=== PATIENT | male | born 1970 | race Caucasian/White ===

== ENCOUNTER 2016-12-17 09:33 | Emergency (ER) | payer MEDICAID ==
[~2016-12-17] VITALS: Ht 175.3 cm; Wt 65.0 kg
[2016-12-17 09:35] VITALS: BP 120/72; PULSE 70; RESP 15; TEMP 97.9; O2SAT 97
[2016-12-17 09:59] VITALS: BP 126/74; PULSE 69; RESP 18; O2SAT 97
[2016-12-17] MEDS ORDERED: oxyCODONE/ACETAMINOPHEN 5 MG/325 MG TAB PO ONE (10:00)
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
[2016-12-17] MEDS ORDERED: HYDR-3533 PO ×2 (11:25→11:26)
[2016-12-17 12:36] VITALS: BP 136/88; TEMP 98.4
[2017-04-25] MEDS ORDERED: SERO300T PO (14:59)
[2017-04-25] MEDS ORDERED: SERO25TA PO (14:59)
== END 2016-12-17 12:25 | disposition home or self-care (01) ==
LOC: NEPE 09:33
DX: S22.31XA Fracture of one rib, right side, initial encounter for closed fracture (principal); S02.40EA Zygomatic fracture, right side, initial encounter for closed fracture; S02.2XXA Fracture of nasal bones, initial encounter for closed fracture; Y09 Assault by unspecified means
CPT/HCPCS: 70450; 70486; 71101; 94150

== ENCOUNTER 2016-12-19 00:31 | Inpatient (IN) | payer OTHER ==
[~2016-12-19] VITALS: Ht 175.3 cm; Wt 68.0 kg
[~2016-12-19 00:31] MED LIST: HYDR-3533 PO
[2016-12-19 00:40] VITALS: BP 136/79; PULSE 76; RESP 17; TEMP 97.8; O2SAT 99
[2016-12-19] MEDS ORDERED: HALO2TAB PO (00:58)
[2016-12-19] MEDS ORDERED: PAXI20TA PO ×2 (00:58)
[2016-12-19] MEDS ORDERED: SERO25TA PO (00:58)
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
[2016-12-19 01:20] LABS: AUTOMATED NEUTROPHIL # 6.2 TH/MM3 (1.8-7.7); BASOPHIL # 0.1 TH/MM3 (0-0.2); BASOPHIL % 0.8 % (0.0-2.0); EOSINOPHIL # 0.5 TH/MM3 (0-0.4); EOSINOPHIL % 5.1 % (0.0-4.0); HEMATOCRIT 45.2 % (39.0-51.0); HEMO FLAGS DIFF FINAL; LYMPH % 27.6 % (9.0-44.0); LYMPHOCYTE # 2.9 TH/MM3 (1.0-4.8); MEAN CELL VOLUME 95.3 FL (80.0-100.0); MEAN CORPUSCULAR HGB CONC 34.6 % (32.0-36.0); MONO % 8.3 % (0.0-8.0); NEUT % 58.2 % (16.0-70.0); PLATELET COUNT 198 TH/MM3 (150-450); RED BLOOD COUNT 4.74 MIL/MM3 (4.50-5.90); RED CELL DISTRIBUTION WIDTH 13.6 % (11.6-17.2); WHITE BLOOD COUNT 10.7 TH/MM3 (4.0-11.0)
[2016-12-19 01:38] LABS: ALT (GPT) 140 U/L (12-78); ANION GAP 10 MEQ/L (5-15); AST (GOT) 84 U/L (15-37); BLOOD UREA NITROGEN 13 MG/DL (7-18); CHLORIDE 104 MEQ/L (98-107); GLOMERULAR FILTRATION RATE 67 ML/MIN (>89); POTASSIUM 3.8 MEQ/L (3.5-5.1); SODIUM (NA) 141 MEQ/L (136-145)
[2016-12-19 01:41] LABS: ACETAMINOPHEN LESS THAN 2.0 MCG/ML (10.0-30.0); ALKALINE PHOSPHATASE 80 U/L (45-117); TOTAL BILIRUBIN ADULT 1.1 MG/DL (0.2-1.0)
[2016-12-19 03:58] VITALS: BP 121/71; PULSE 76; RESP 16; O2SAT 93
[2016-12-19] MEDS ORDERED: ACETAMINOPHEN/HYDROcodone 325 MG/5 MG TAB PO ONE (06:00)
[2016-12-19] MEDS ORDERED: NAPROXEN 500 MG TAB PO ONE (06:00)
[2016-12-19 06:36] VITALS: BP 125/58; PULSE 73; RESP 19; O2SAT 99
[2016-12-19] MEDS ORDERED: BENZTROPINE MESYLATE 1 MG TAB PO PRN (08:45)
[2016-12-19] MEDS ORDERED: hydrOXYzine HCL 50 MG TAB PO PRN (08:45)
[2016-12-19] MEDS ORDERED: BENZTROPINE MESYLATE 2 MG/2 ML VIAL IM PRN (08:45)
[2016-12-19] MEDS ORDERED: LORazepam 2 MG/ML VIAL IM PRN ×4 (08:45)
[2016-12-19] MEDS ORDERED: diphenhydrAMINE HCL 50 MG CAP PO PRN (08:45)
[2016-12-19] MEDS ORDERED: ALUMINUM/MAGNESIUM/SIMETH 30 ML CUP PO PRN (08:45)
[2016-12-19] MEDS ORDERED: MAGNESIUM HYDROXIDE SUSP 30 ML CUP PO PRN (08:45)
[2016-12-19] MEDS ORDERED: LORazepam 2 MG TAB PO PRN (08:45)
[2016-12-19] MEDS ORDERED: LORazepam 1 MG TAB PO PRN (08:45)
[2016-12-19] MEDS ORDERED: FLUMAZENIL 0.5 MG/5 ML VIAL IV PUSH PRN (08:45)
[2016-12-19] MEDS ORDERED: PARoxetine HCL 20 MG TAB PO SCH (09:00)
[2016-12-19] MEDS ORDERED: PILL SPLITTER OTHER PRN (09:45)
[2016-12-19 09:52] VITALS: BP 119/71; PULSE 67; RESP 16; O2SAT 97
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
[2016-12-19 11:14] VITALS: BP 119/71; PULSE 67; RESP 16; O2SAT 97
[2016-12-19 12:12] VITALS: BP 116/68; PULSE 64; RESP 18; TEMP 98.5; O2SAT 94
[2016-12-19] MEDS: FOLIC ACID 1 MG TAB PO SCH (13:34)
[2016-12-19] MEDS: HALOPERIDOL 2 MG TAB PO SCH ×2 (13:34→20:48)
[2016-12-19] MEDS: THIAMINE HCL 100 MG TAB PO SCH (13:34)
[2016-12-19] MEDS: NICOTINE 21 MG/24 HR PATCH T-DERMAL SCH (13:34)
[2016-12-19] MEDS: ACETAMINOPHEN 325 MG TAB PO PRN ×2 (17:25→20:49)
[2016-12-19 17:44] LABS: PROTHROMBIN TIME - PATIENT 11.5 SEC (9.8-11.6)
[2016-12-19] MEDS ORDERED: QUEtiapine FUMARATE 25 MG TAB PO SCH (21:00)
[2016-12-20 06:06] VITALS: BP 108/68; PULSE 64; RESP 18; TEMP 98.5; O2SAT 96
[2016-12-20 07:44] LABS: ALKALINE PHOSPHATASE 71 U/L (45-117); ALT (GPT) 113 U/L (12-78); ANION GAP 7 MEQ/L (5-15); AST (GOT) 78 U/L (15-37); BICARBONATE 31.4 MEQ/L (21.0-32.0); BLOOD UREA NITROGEN 12 MG/DL (7-18); CHLORIDE 102 MEQ/L (98-107); GLOMERULAR FILTRATION RATE 62 ML/MIN (>89); LDL CHOLESTEROL 92 MG/DL (0-99); SODIUM (NA) 140 MEQ/L (136-145); TOTAL BILIRUBIN ADULT 1.2 MG/DL (0.2-1.0)
[2016-12-20] MEDS: THIAMINE HCL 100 MG TAB PO SCH (08:29)
[2016-12-20] MEDS: FOLIC ACID 1 MG TAB PO SCH (08:29)
[2016-12-20] MEDS: HALOPERIDOL 2 MG TAB PO SCH (08:30)
[2016-12-20] MEDS ORDERED: PARoxetine HCL 20 MG TAB PO SCH (09:00)
[2016-12-20] MEDS: NICOTINE 21 MG/24 HR PATCH T-DERMAL SCH (09:00)
[2016-12-20] MEDS ORDERED: REMOVE OLD PATCH T-DERMAL SCH (09:00)
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
--- NOTE | 2016-12-20 10:02 | RADRPT ---
EXAM DATE/TIME: 12/20/2016 07:48 [facility] COMPARISON: No previous studies available for comparison. INDICATIONS : Increased lab values. MEDICAL HISTORY : Arthritis. Schizophrenia. Bipolar disorder. Previous suicide attempt. SURGICAL HISTORY : None. ENCOUNTER: Initial ACUITY: 2 days PAIN SCORE: 0/10 LOCATION: Bilateral upper quadrant MEASUREMENTS: LIVER: 14.6 cm length COMMON DUCT: 4 mm RIGHT KIDNEY: 10.1 x 5.3 x 4.9 cm SPLEEN: 9.3 cm length FINDINGS: LIVER: Normal echotexture without focal lesion or ductal dilatation. COMMON DUCT: No intraluminal mass or stone visualized. GALLBLADDER: Contains no stones, demonstrates no wall thickening or pericholecystic fluid. PANCREAS: Not well visualized or evaluated. RIGHT KIDNEY: No hydronephrosis, stone or mass. SPLEEN: No focal lesion. CONCLUSION: Unremarkable exam. Alejandro Hartmann MD on December 20, 2016 at 10:00 Board Certified Radiologist. This report was verified electronically.
[2016-12-20 10:36] LABS: HEMOGLOBIN A1a 1.3 %; HEMOGLOBIN A1b 1.5 %; HEMOGLOBIN Ao 85.1 %; HEMOGLOBIN LA1C 2.2 %; HEMOGLOBIN P3 3.6 %
[2016-12-20] MEDS ORDERED: PARO20TA2 PO (13:42)
[2016-12-20] MEDS ORDERED: VITA100T2 PO (13:42)
[2016-12-20] MEDS ORDERED: HALO2TAB PO (13:42)
[2016-12-20] MEDS ORDERED: SERO25TA PO (13:42)
[2016-12-20] MEDS ORDERED: FOLI1TAB4 PO (13:42)
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
[2016-12-20] MEDS ORDERED: RESP: ALBUTEROL 2.5 MG/IPRATROPIUM 0.5 MG NEB (SCH) NEB (14:00)
[2016-12-20] MEDS ORDERED: BUDESONIDE-FORMOTEROL 160/4.5 MCG INHALER INH SCH (21:00)
[2017-04-25] MEDS ORDERED: SERO300T PO (14:59)
[2017-04-25] MEDS ORDERED: SERO25TA PO (14:59)
== END 2016-12-20 14:45 | disposition home or self-care (01) | DRG 881 ==
LOC: NEPA 00:31 → NEDA 08:11 → H260 11:37
PROVIDERS: ADMIT Psychiatry & Neurology Psychiatry; ATTEND Psychiatry & Neurology Psychiatry
DX: F43.21 Adjustment disorder with depressed mood (principal); J44.9 Chronic obstructive pulmonary disease, unspecified; F10.10 Alcohol abuse, uncomplicated; Z76.5 Malingerer [conscious simulation]; Z59.0 Homelessness; Z91.5 Personal history of self-harm; F17.210 Nicotine dependence, cigarettes, uncomplicated; F12.90 Cannabis use, unspecified, uncomplicated; Z87.820 Personal history of traumatic brain injury; S22.31XD Fracture of one rib, right side, subsequent encounter for fracture with routine healing; Y09 Assault by unspecified means; R68.84 Jaw pain
CPT/HCPCS: 70450; 70486; 71101; 76705; 80053; 80061; 80074; 80320; 80329; 83036; 84443; 85025; 85610; 94150; 99285; G0480; Q0163

== ENCOUNTER 2016-12-21 00:42 | Emergency (ER) | payer OTHER ==
[~2016-12-21] VITALS: Ht 175.3 cm; Wt 68.0 kg
[~2016-12-21 00:42] MED LIST changes: +FOLI1TAB4 PO; +HALO2TAB PO; -HYDR-3533 PO; +PARO20TA2 PO; +SERO25TA PO; +VITA100T2 PO
[2016-12-21 00:44] VITALS: BP 140/82; PULSE 84; RESP 16; TEMP 97.7; O2SAT 97
--- NOTE | 2016-12-21 03:17 | PD ---
HPI Chief Complaint: Psychiatric Symptoms Time Seen by Provider: 03:17 Travel History International Travel<30 days: No Contact w/Intl Traveler<30days: No History of Present Illness HPI 46-year-old male presents to the emergency department voluntarily for psychiatric evaluation. Patient has history of substance abuse. Patient is also homeless and states he has been depressed. Patient was evaluated recently in the ER and by psych here at [facility]. He was discharged yesterday. Patient states upon discharge he returned and found that his dog had . This caused him to be even more depressed and feeling suicidal again. He states that he needs to be reevaluated. PFSH Past Medical History Arthritis: Yes Bipolar Disorder: Yes Anxiety: Yes Depression: Yes Cancer: No Cardiovascular Problems: No Diminished Hearing: No Endocrine: No Genitourinary: No Immune Disorder: No Musculoskeletal: Yes Neurologic: No Reproductive: No Respiratory: No Schizophrenia: Yes Social History Alcohol Use: Yes (daily) Tobacco Use: Yes (0.5 ppd) Substance Use: Yes Allergies-Medications (Allergen,Severity, Reaction): Coded Allergies: No Known Allergies (Unverified , 12/21/16) Reported Meds & Prescriptions Reported Meds & Active Scripts Active Vitamin B-1 (Thiamine HCl) 100 Mg Tab 100 Mg PO DAILY 15 Days Paroxetine (Paroxetine HCl) 20 Mg Tab 30 Mg PO DAILY 15 Days Folate (Folic Acid) 1 Mg Tab 1 Mg PO DAILY 30 Days Seroquel (Quetiapine Fumarate) 25 Mg Tab 25 Mg PO HS 15 Days Haloperidol 2 Mg Tab 2 Mg PO BID 15 Days Review of Systems Except as stated in HPI: all other systems reviewed are Neg Physical Exam Narrative GENERAL: Unkempt male patient, ambulatory and in no acute distress. SKIN: Warm and dry. HEAD: Normocephalic. Atraumatic EYES: No scleral icterus. No injection or drainage. NECK: Supple, trachea midline. No JVD or lymphadenopathy. CARDIOVASCULAR: Regular rate and rhythm without murmurs, gallops, or rubs. RESPIRATORY: Breath sounds equal bilaterally. No accessory muscle use. GASTROINTESTINAL: Abdomen soft, non-tender, nondistended. MUSCULOSKELETAL: No cyanosis, or edema. BACK: Nontender without obvious deformity. No CVA tenderness. Data Data Last Documented VS Vital Signs Date Time Temp Pulse Resp B/P Pulse Ox O2 Delivery O2 Flow Rate FiO2 12/21/16 00:44 97.7 84 16 140/82 97 Orders Psych Screen (12/21/16 04:22) Diet Regular Basic (12/21/16 Breakfast) MDM Medical Decision Making Medical Screen Exam Complete: Yes Emergency Medical Condition: Yes Medical Record Reviewed: Yes Differential Diagnosis Mood disorder versus personality disorder versus adjustment reaction disorder versus malingering Narrative Course 46-year-old male presents to emergency department for evaluation. Patient was just discharged yesterday with lab work done 2 days ago. It will not need to be repeated. He is medically cleared to undergo psychiatric screening for further evaluation and disposition. Mental health screening discussed with the patient. Psychiatric screen ordered. Diagnosis Primary Impression: Adjustment disorder with depressed mood Condition: Stable Nayla Johnson Dec 21, 2016 03:17
[2016-12-21 06:13] VITALS: BP 109/55; PULSE 72; RESP 18; O2SAT 99
[2016-12-21 10:53] VITALS: BP 98/50; PULSE 63; RESP 16; O2SAT 98
[2016-12-21 13:39] VITALS: BP 105/54; PULSE 68; RESP 16; O2SAT 96
[2017-04-25] MEDS ORDERED: SERO300T PO (14:59)
[2017-04-25] MEDS ORDERED: SERO25TA PO (14:59)
== END 2016-12-21 14:22 | disposition home or self-care (01) ==
LOC: NEPJ 00:42
DX: F43.21 Adjustment disorder with depressed mood (principal); F31.9 Bipolar disorder, unspecified; F41.8 Other specified anxiety disorders; F20.9 Schizophrenia, unspecified; F17.210 Nicotine dependence, cigarettes, uncomplicated; Z59.0 Homelessness
CPT/HCPCS: 99284

== ENCOUNTER 2017-01-07 14:21 | Emergency (ER) | payer MEDICAID, OTHER ==
[~2017-01-07] VITALS: Ht 175.3 cm; Wt 60.0 kg
[2017-01-07 14:24] VITALS: BP 129/71; PULSE 106; RESP 24; TEMP 98.8; O2SAT 93
--- NOTE | 2017-01-07 14:54 | PD ---
HPI Chief Complaint: Psychiatric Symptoms Time Seen by Provider: 14:53 Travel History International Travel<30 days: No Contact w/Intl Traveler<30days: No Traveled to known affect area: No History of Present Illness HPI 46-year-old male with history of schizophrenia, homelessness presents to the ED for voluntary evaluation of suicidal ideation. The patient states that his dog of 10+ years is missing, possibly . He states that he wants to hang himself and join her. He states that he spent all night wandering around calling her name. He states that he was provided medications at his last discharge but he has not taken any of them since. He states that they were stolen. He denies physical complaints on presentation. Patient is a current smoker, endorses drinking "a few beers" today. Denies illicit drug use. PFSH Past Medical History Arthritis: Yes Bipolar Disorder: Yes Anxiety: Yes Depression: Yes Cancer: No Cardiovascular Problems: No Diminished Hearing: No Endocrine: No Genitourinary: No Immune Disorder: No Musculoskeletal: Yes Neurologic: No Reproductive: No Respiratory: No Schizophrenia: Yes Past Surgical History Other Surgery: Yes Social History Alcohol Use: Yes (daily) Tobacco Use: Yes (0.5 ppd) Substance Use: Yes Allergies-Medications (Allergen,Severity, Reaction): Coded Allergies: No Known Allergies (Unverified , 01/07/17) Reported Meds & Prescriptions Reported Meds & Active Scripts Active Vitamin B-1 (Thiamine HCl) 100 Mg Tab 100 Mg PO DAILY 15 Days Paroxetine (Paroxetine HCl) 20 Mg Tab 30 Mg PO DAILY 15 Days Folate (Folic Acid) 1 Mg Tab 1 Mg PO DAILY 30 Days Seroquel (Quetiapine Fumarate) 25 Mg Tab 25 Mg PO HS 15 Days Haloperidol 2 Mg Tab 2 Mg PO BID 15 Days Review of Systems Except as stated in HPI: all other systems reviewed are Neg Physical Exam Narrative GENERAL: Well-nourished, well-developed disheveled, tearful white male in no acute distress. SKIN: Warm and dry. Multiple tattoos. There is a small scab on the dorsal aspect of the right foot. No signs of infection. HEAD: Normocephalic. EYES: No scleral icterus. No injection or drainage. NECK: Supple, trachea midline. No JVD or lymphadenopathy. CARDIOVASCULAR: Regular rate and rhythm without murmurs, gallops, or rubs. 2+ DP and radial pulses bilaterally. RESPIRATORY: Breath sounds clear and equal bilaterally. No accessory muscle use. GASTROINTESTINAL: Abdomen soft, non-tender, nondistended. Active bowel sounds. MUSCULOSKELETAL: No cyanosis, or edema. Patient is observed to walk with a normal gait. He rises easily from sitting to standing positions. BACK: Nontender without obvious deformity. No CVA tenderness. Data Data Last Documented VS Vital Signs Date Time Temp Pulse Resp B/P Pulse Ox O2 Delivery O2 Flow Rate FiO2 01/07/17 15:00 86 16 01/07/17 14:24 98.8 129/71 93 Room Air Orders Complete Blood Count With Diff (01/07/17 14:54) Comprehensive Metabolic Panel (01/07/17 14:54) Psych Screen (01/07/17 14:54) Drug Screen, Random Urine (01/07/17 14:54) Alcohol (Ethanol) (01/07/17 14:54) Alcohol Withdrawal Asmt-Ciwa ONCE (01/07/17 16:28) Flumazenil Inj (Romazicon Inj) (01/07/17 16:30) Lorazepam (Ativan) (01/07/17 16:30) Lorazepam Inj (Ativan Inj) (01/07/17 16:30) Lorazepam (Ativan) (01/07/17 16:30) Lorazepam Inj (Ativan Inj) (01/07/17 16:30) Lorazepam Inj (Ativan Inj) (01/07/17 16:30) Lorazepam Inj (Ativan Inj) (01/07/17 16:30) Labs Laboratory Tests Test 01/07/17 15:00 White Blood Count 12.6 TH/MM3 Red Blood Count 4.88 MIL/MM3 Hemoglobin 16.2 GM/DL Hematocrit 48.4 % Mean Corpuscular Volume 99.1 FL Mean Corpuscular Hemoglobin 33.3 PG Mean Corpuscular Hemoglobin 33.6 % Concent Red Cell Distribution Width 15.0 % Platelet Count 292 TH/MM3 Mean Platelet Volume 8.6 FL Neutrophils (%) (Auto) 58.6 % Lymphocytes (%) (Auto) 26.1 % Monocytes (%) (Auto) 12.1 % Eosinophils (%) (Auto) 2.8 % Basophils (%) (Auto) 0.4 % Neutrophils # (Auto) 7.4 TH/MM3 Lymphocytes # (Auto) 3.3 TH/MM3 Monocytes # (Auto) 1.5 TH/MM3 Eosinophils # (Auto) 0.4 TH/MM3 Basophils # (Auto) 0.0 TH/MM3 CBC Comment DIFF FINAL Differential Comment Sodium Level 138 MEQ/L Potassium Level 5.4 MEQ/L Chloride Level 106 MEQ/L Carbon Dioxide Level 22.4 MEQ/L Anion Gap 10 MEQ/L Blood Urea Nitrogen 9 MG/DL Creatinine 1.19 MG/DL Estimat Glomerular Filtration 66 ML/MIN Rate Random Glucose 111 MG/DL Calcium Level 8.8 MG/DL Total Bilirubin 0.5 MG/DL Aspartate Amino Transf 89 U/L (AST/SGOT) Alanine Aminotransferase 78 U/L (ALT/SGPT) Alkaline Phosphatase 119 U/L Total Protein 8.2 GM/DL Albumin 3.2 GM/DL Ethyl Alcohol Level 204 MG/DL MDM Medical Decision Making Medical Screen Exam Complete: Yes Emergency Medical Condition: Yes Differential Diagnosis Adjustment disorder versus anxiety versus bipolar versus depression versus dementia versus electrolyte disorder versus malingering versus mood disorder versus ODD versus psychosis versus PTSD versus schizophrenia versus schizoaffective disorder versus substance-induced mood disorder versus other Narrative Course 46-year-old male with history of schizophrenia, homelessness presents to the ED for voluntary evaluation of suicidal ideation. The patient states that his dog of 10+ years is missing, possibly . He states that he wants to hang himself and join her. Noncompliant with psychiatric medications prescribed at previous discharge. No physical complaints. Vitals reviewed. Physical exam reveals a disheveled, tearful white male in no acute distress. Chest is CTA B, abdomen soft, nontender. Remaining physical exam unremarkable. CBC shows mild elevation of the white count, likely stress reaction. CMP with mildly elevated potassium. EtOH 204. Patient placed on CIWA protocol. He is medically clear for psychiatric evaluation. Diagnosis Primary Impression: Medical clearance for psychiatric admission Aranza Abdalla Jan 07, 2017 14:54
[2017-01-07 15:16] LABS: AUTOMATED NEUTROPHIL # 7.4 TH/MM3 (1.8-7.7); BASOPHIL % 0.4 % (0.0-2.0); EOSINOPHIL # 0.4 TH/MM3 (0-0.4); EOSINOPHIL % 2.8 % (0.0-4.0); HEMATOCRIT 48.4 % (39.0-51.0); HEMO FLAGS DIFF FINAL; LYMPH % 26.1 % (9.0-44.0); LYMPHOCYTE # 3.3 TH/MM3 (1.0-4.8); MEAN CELL VOLUME 99.1 FL (80.0-100.0); MEAN CORPUSCULAR HEMOGLOBIN 33.3 PG (27.0-34.0); MEAN CORPUSCULAR HGB CONC 33.6 % (32.0-36.0); MONO % 12.1 % (0.0-8.0); NEUT % 58.6 % (16.0-70.0); PLATELET COUNT 292 TH/MM3 (150-450); RED BLOOD COUNT 4.88 MIL/MM3 (4.50-5.90); WHITE BLOOD COUNT 12.6 TH/MM3 (4.0-11.0)
[2017-01-07 15:36] LABS: ALT (GPT) 78 U/L (12-78); ANION GAP 10 MEQ/L (5-15); AST (GOT) 89 U/L (15-37); BICARBONATE 22.4 MEQ/L (21.0-32.0); BLOOD UREA NITROGEN 9 MG/DL (7-18); CHLORIDE 106 MEQ/L (98-107); GLOMERULAR FILTRATION RATE 66 ML/MIN (>89); SODIUM (NA) 138 MEQ/L (136-145)
[2017-01-07 15:38] LABS: ALKALINE PHOSPHATASE 119 U/L (45-117); POTASSIUM 5.4 MEQ/L (3.5-5.1); TOTAL BILIRUBIN ADULT 0.5 MG/DL (0.2-1.0)
[2017-01-07] MEDS ORDERED: FLUMAZENIL 0.5 MG/5 ML VIAL IV PUSH PRN (16:30)
[2017-01-07] MEDS ORDERED: LORazepam 1 MG TAB PO PRN (16:30)
[2017-01-07] MEDS ORDERED: LORazepam 2 MG TAB PO PRN (16:30)
[2017-01-07] MEDS ORDERED: LORazepam 2 MG/ML VIAL IV PUSH PRN ×4 (16:30)
[2017-01-07 18:45] VITALS: BP 105/63; PULSE 84; RESP 18; TEMP 98.3; O2SAT 95
[2017-01-07] MEDS ORDERED: HYDR-3516 PO (19:32)
[2017-01-07 22:24] VITALS: BP 98/69; PULSE 72; RESP 18
[2017-01-08 02:06] VITALS: BP 119/67; PULSE 63; RESP 18; O2SAT 96
[2017-01-08 06:38] VITALS: BP 131/71; PULSE 59; RESP 18; O2SAT 98
[2017-01-08 10:36] VITALS: BP 125/72; PULSE 59; RESP 16; TEMP 98.5; O2SAT 97
[2017-01-08 10:45] VITALS: BP 125/72
[2017-01-08 12:18] LABS: BLOOD, URINE NEG (NEG); COMMENT (UR) CULT NOT INDICATED; CULTURE IF INDICATED CULT NOT INDICATED; GLUCOSE,URINE NEG (NEG); KETONE, URINE NEG (NEG); NITRITE,URINE NEG (NEG); URINE COLOR YELLOW (YELLW/STRAW)
[2017-01-08 12:24] LABS: AMPHETAMINE, URINE NEG (NEG); BARBITURATES, URINE NEG (NEG); COCAINE, URINE POS (NEG)
[2017-01-08 13:00] VITALS: BP 146/65; PULSE 54; RESP 18
[2017-04-25] MEDS ORDERED: SERO25TA PO (14:59)
[2017-04-25] MEDS ORDERED: SERO300T PO (14:59)
== END 2017-01-08 14:20 ==
LOC: NEPC 14:21 → NEPJ 01-08 14:20
DX: R45.851 Suicidal ideations (principal); F20.9 Schizophrenia, unspecified; F17.210 Nicotine dependence, cigarettes, uncomplicated; Z59.0 Homelessness
CPT/HCPCS: 80053; 80307; 80320; 81001; 85025; 99285

== ENCOUNTER 2017-04-20 16:43 | Emergency (ER) | payer MEDICAID, OTHER ==
[~2017-04-20] VITALS: Ht 172.7 cm; Wt 70.0 kg
[~2017-04-20 16:43] MED LIST changes: -HALO2TAB PO; +HYDR-3516 PO; -PARO20TA2 PO; -SERO25TA PO; -VITA100T2 PO
[2017-04-20 16:45] VITALS: BP 144/74; PULSE 90; RESP 20; TEMP 98.1; O2SAT 96
--- NOTE | 2017-04-20 17:06 | PD ---
HPI Chief Complaint: Eye Problems/Injury Time Seen by Provider: 16:58 Travel History International Travel<30 days: No Contact w/Intl Traveler<30days: No Traveled to known affect area: No History of Present Illness HPI This patient presents with 2 separate complaints. The first issue is that for the past 5 days he has been having left eye drainage, matting, tearing and irritation. He believes that it is secondary to rubbing his eye when he had some toothpaste on his finger. Symptoms are mild, aggravated by keeping his eye open. He does not wear contacts. In addition the patient is complaining of right wrist pain. He reports that earlier today he was pulling his dog leash when he was pulled to the ground, fell on his right wrist. He now has medial right wrist pain which is aching, constant, worse with movement of the right wrist. Denies any other injuries, denies numbness or tingling or weakness. He has no other complaints. PFSH Past Medical History Arthritis: Yes Bipolar Disorder: Yes Anxiety: Yes Depression: Yes Cancer: No Cardiovascular Problems: No Cerebrovascular Accident: Yes (TIA, X2 HEAD BLEEDS) Diminished Hearing: No Endocrine: No Genitourinary: No Immune Disorder: No Musculoskeletal: Yes Neurologic: No Reproductive: No Respiratory: No Schizophrenia: Yes Past Surgical History Other Surgery: Yes Social History Alcohol Use: Yes (daily) Tobacco Use: Yes (0.5 ppd) Substance Use: Yes Allergies-Medications (Allergen,Severity, Reaction): Coded Allergies: No Known Allergies (Unverified , 04/20/17) Reported Meds & Prescriptions Reported Meds & Active Scripts Active Tobrex Opth Oint (Tobramycin Sulfate) 0.3 % Oint 1 Applic LEFT EYE QID 10 Days Folate (Folic Acid) 1 Mg Tab 1 Mg PO DAILY 30 Days Reported Hydrocodone-Acetaminophen 5-325 mg Tab 1 Tab PO Q4H PRN Review of Systems Except as stated in HPI: all other systems reviewed are Neg Physical Exam Narrative GENERAL: Well-developed well-nourished male in no acute distress SKIN: Warm and dry. HEAD: Atraumatic. Normocephalic. EYES: Pupils equal and round reactive to light extraocular muscles are intact. There is left eye conjunctival injection. Wood's lamp reveals 2 linear abrasions overlying the left eye pupil. No dendritic lesions. Negative Jessica' s. The upper eyelid was everted and there is no evidence of retained foreign body. ENT: No nasal bleeding or discharge. Mucous membranes pink and moist. NECK: Trachea midline. No JVD. CARDIOVASCULAR: Regular rate and rhythm. No murmur appreciated. RESPIRATORY: No accessory muscle use. Clear to auscultation. Breath sounds equal bilaterally. MUSCULOSKELETAL: No obvious deformities. Some tenderness to palpation to the medial right wrist. The patient maintains normal patient representative strength, full flexion, extension, internal and external rotation of the right wrist/forearm. 2+ radial pulse. Capillary refill less than 2 seconds all digits right hand. NEUROLOGICAL: Awake and alert. No obvious cranial nerve deficits. Motor grossly within normal limits. Normal speech. Data Data Last Documented VS Vital Signs Date Time Temp Pulse Resp B/P Pulse Ox O2 Delivery O2 Flow Rate FiO2 04/20/17 16:45 98.1 90 20 144/74 96 Room Air Orders Proparacaine 0.5% Opth Soln (Alcaine 0.5 (04/20/17 17:15) Wrist, Complete ([id number]) (04/20/17 ) Tobramycin 0.3% Opth Oint (Tobrex 0.3% O (04/20/17 17:30) Ibuprofen (Motrin) (04/20/17 17:45) MDM Medical Decision Making Medical Screen Exam Complete: Yes Emergency Medical Condition: Yes Medical Record Reviewed: Yes Differential Diagnosis Conjunctivitis, corneal abrasion, foreign body, iritis, keratitis, herpetic keratitis Right wrist contusion, strain, sprain, fracture Narrative Course 46-year-old male with left eye redness, irritation, matting and yellow drainage for 5 days. Examination reveals left eye conjunctival injection as well as 2 large linear corneal abrasions overlying the pupil. No dendritic lesions to suggest herpetic infection. Given that the symptoms started 5 days ago and the fact that they overlying the pupil, the plan will be to have him follow-up as an outpatient with ophthalmology for recheck to assure no complications and the healing process. He will be given Tobrex ophthalmic ointment, first dose given here. In addition he has right wrist pain after falling and hitting his right wrist against the ground. Wrist x-rays negative. The patient is requesting a Velcro wrist splint which would be a reasonable intervention at this point. He is stable for discharge. Diagnosis Primary Impression: Injury of conjunctiva and corneal abrasion of left eye w/o FB Qualified Code: S05.02XA - Injury of conjunctiva and corneal abrasion of left eye w/o FB, initial encounter Additional Impression: Wrist contusion Qualified Code: S60.211A - Contusion of right wrist, initial encounter Referrals: Rebecca Rao MD Additional Instructions: Follow-up with Dr. Rao or another manager of application development in the next 1-2 days. Use the medication as prescribed. Take [id number] Tylenol or Motrin for symptom relief. Return for any emergent medical conditions. Med/Other Pt SpecificInfo: Prescription(s) given, Orthopedic Instructions Scripts Tobramycin Opth Oint (Tobrex Opth Oint)0.3 % Oint1 Applic LEFT EYE QID 10 Days Ref 0 Prov:Rafael Fuentes MD 04/20/17 Disposition: 01 DISCHARGE HOME Condition: Stable Fidel Cantu Apr 20, 2017 17:06
[2017-04-20] MEDS ORDERED: PROPARACAINE HCL 0.5% OPHT SOLN 15 ML BTL LEFT EYE ONE (17:15)
[2017-04-20] MEDS ORDERED: TOBR.3%O LEFT EYE (17:17)
[2017-04-20] MEDS ORDERED: TOBRAMYCIN SULFATE 0.3% OPTH OINT 3.5 GM TUBE LEFT EYE ONE (17:30)
[2017-04-20] MEDS ORDERED: IBUPROFEN 400 MG TAB PO ONE (17:45)
--- NOTE | 2017-04-20 17:54 | RADRPT ---
EXAM DATE/TIME: 04/20/2017 17:34 [facility] COMPARISON: No previous studies available for comparison. INDICATIONS : Right wrist pain after fall. MEDICAL HISTORY : Previous fracture in 2013 of right wrist. SURGICAL HISTORY : None. ENCOUNTER: Initial ACUITY: 1 day PAIN SCORE: 7/10 LOCATION: Right lateral wrist. FINDINGS: 3 views of the right wrist reveal old fracture involving the distal radial metaphysis. No residual fr acture line observed. No acute fracture seen. Degenerative changes of the radiocarpal joint. Soft tis sues are unremarkable. CONCLUSION: Old distal radial fracture. No acute abnormality. Oren Sibley Jr., MD on April 20, 2017 at 17:51 Board Certified Radiologist. This report was verified electronically.
[2017-04-25] MEDS ORDERED: SERO25TA PO (14:59)
[2017-04-25] MEDS ORDERED: SERO300T PO (14:59)
== END 2017-04-20 18:07 | disposition home or self-care (01) ==
LOC: NEPK 16:43
DX: S05.02XA Injury of conjunctiva and corneal abrasion without foreign body, left eye, initial encounter (principal); S60.211A Contusion of right wrist, initial encounter; F17.200 Nicotine dependence, unspecified, uncomplicated; Z87.39 Personal history of other diseases of the musculoskeletal system and connective tissue; Z86.59 Personal history of other mental and behavioral disorders; Z86.79 Personal history of other diseases of the circulatory system; W18.39XA Other fall on same level, initial encounter; Y93.K1 Activity, walking an animal
CPT/HCPCS: 73110; 99283; L3908

== ENCOUNTER 2017-10-09 05:03 | Inpatient (IN) | payer OTHER ==
[2017-10-09] VITALS (9 sets, daily range): BP systolic 124–139; BP diastolic 73–94; PULSE 74–91; RESP 14–20; TEMP 96.3–98.8; O2SAT 94–98
[~2017-10-09] VITALS: Ht 175.3 cm; Wt 72.5 kg
[~2017-10-09 05:03] MED LIST changes: -FOLI1TAB4 PO; -HYDR-3516 PO; +SERO25TA PO; +SERO300T PO; +TOBR.3%O LEFT EYE
[2017-10-09] MEDS ORDERED: CLON.5 PO (05:13)
[2017-10-09] MEDS ORDERED: MORPHINE SULFATE 4 MG/ML INJ IV PUSH ONE (05:30)
[2017-10-09] MEDS ORDERED: SODIUM CHLOR 0.9% 1000 ML INJ 1,000 ML IV ONE ×4 (05:30→11:00)
[2017-10-09] MEDS ORDERED: ONDANSETRON HCL 4 MG/2 ML VIAL IV ONE (05:30)
--- NOTE | 2017-10-09 05:34 | PD ---
HPI Chief Complaint: Abdominal Pain Time Seen by Provider: 05:05 Travel History International Travel<30 days: No Contact w/Intl Traveler<30days: No Traveled to known affect area: No History of Present Illness HPI The patient is a 46 year old male who presents to the [facility] emergency department with a history of generalized abdominal pain that awoke him from sound sleep approximately 1 hour prior to arrival. The patient reports that over the last week he has had increased problems with heartburn. He reports that he's been taking [id number] antacids for relief. He denies taking any olwh-zuo-boegoen pain medications such as ibuprofen, Aleve, Tylenol, or BC powders. The patient denies ever having a pain like this previously. The patient reports that the pain is severe and 10 out of 10. He reports that it waxes and wanes in severity. He reports the pain is sharp in character. He reports having nausea without vomiting or diarrhea. His last bowel movement was earlier yesterday. He denies having any blood in his stool or black or tarry stools. Review of systems otherwise, the patient denies having any known recent fevers, cough, congestion, neck pain, chest pain, shortness of breath, urinary symptoms, or neurologic symptoms. [facility] Past Medical History Narrative Medical The patient's past medical history is significant for a history of TIA, history of arthritis, bipolar disorder, schizophrenia, history of intracranial hemorrhage Arthritis: Yes Bipolar Disorder: Yes Anxiety: Yes Depression: Yes Cancer: No Cardiovascular Problems: No Cerebrovascular Accident: Yes (TIA, X2 HEAD BLEEDS) Diminished Hearing: No Endocrine: No Genitourinary: No Immune Disorder: No Musculoskeletal: Yes Neurologic: No Reproductive: No Respiratory: No Schizophrenia: Yes Past Surgical History Narrative Surgical The patient's past surgical history is unremarkable. Other Surgery: Yes Social History Alcohol Use: Yes (2 beers 4-5 times per week) Tobacco Use: Yes (one pack per day) Substance Use: Yes (marijuana) Allergies-Medications (Allergen,Severity, Reaction): Coded Allergies: No Known Allergies (Verified Allergy, Unknown, 10/09/17) Reported Meds & Prescriptions Reported Meds & Active Scripts Active Reported Klonopin (Clonazepam) 0.5 Mg Tab 0.5 Mg PO BID Seroquel (Quetiapine Fumarate) 300 Mg Tab 600 Mg PO HS Seroquel (Quetiapine Fumarate) 25 Mg Tab 25 Mg PO BID Review of Systems General / Constitutional: No: Fever Eyes: No: Visual changes HENT: No: Headaches Cardiovascular: No: Chest Pain or Discomfort Respiratory: No: Shortness of Breath Gastrointestinal: Positive: Nausea, Abdominal Pain, Indigestion, No: Vomiting, Diarrhea, Hematemesis, Hematochezia, Changes in Bowel Habits, Loss of Appetite Genitourinary: No: Dysuria Musculoskeletal: No: Pain Skin: No Rash Neurologic: No: Weakness Psychiatric: No: Depression Endocrine: No: Polydipsia Hematologic/Lymphatic: No: Easy Bruising Physical Exam Narrative General: The patient is a well-developed well-nourished male, uncomfortable appearing on arrival, writhing around the bed. Head and Neck exam: Head is normocephalic atraumatic. Eyes: EOMI, pupils are equal round and reactive to light. Nose: Midline septum with pink mucous membranes Mouth: Dentition unremarkable. Moist mucus membranes. Posterior oropharynx is not erythematous. No tonsillar hypertrophy. Uvula midline. Airway patent. Neck: No palpable lymphadenopathy. No nuchal rigidity. No thyromegaly. Cardiovascular: Sinus tachycardia in the low 100 without murmurs, gallops, or rubs. No pulse deficit to the extremities on simultaneous auscultation and palpation of his radial artery. Lungs: Clear to auscultation bilaterally. No wheezes, rhonchi, or rales. Abdomen: Soft, with reported tenderness on palpation of all quadrants of the abdomen worse on palpation in the midepigastric area the patient has voluntary guarding without any rebound or rigidity. Decreased bowel sounds are audible.. No guarding, rebound, or rigidity. No specific point tenderness on palpation over McBurney's point. Negative Juarez's sign. Extremities: No clubbing, cyanosis, or edema. 2+ pulses in all 4 extremities. No calf tenderness on palpation. Back: No spinous process tenderness to palpation. No costovertebral angle tenderness to palpation. Neurologic Exam: Grossly nonfocal. Skin Exam: No rash noted. Intact skin that is warm and dry. Data Data Last Documented VS Vital Signs Date Time Temp Pulse Resp B/P (MAP) Pulse Ox O2 Delivery O2 Flow Rate FiO2 10/09/17 05:22 96 Room Air 10/09/17 05:20 97.4 10/09/17 05:08 14 Orders Orders Complete Blood Count With Diff (10/09/17 05:18) Comprehensive Metabolic Panel (10/09/17 05:18) Troponin I (10/09/17 05:18) Prothrombin Time / Inr (Pt) (10/09/17 05:18) Act Partial Throm Time (Ptt) (10/09/17 05:18) C-Reactive Protein (Crp) (10/09/17 05:18) Lipase (10/09/17 05:18) Urinalysis - C+S If Indicated (10/09/17 05:18) Magnesium (Mg) (10/09/17 05:18) Abdomen, Flat & Upright (10/09/17 05:18) Iv Access Insert/Monitor (10/09/17 05:18) Ecg Monitoring (10/09/17 05:18) Oximetry (10/09/17 05:18) Drug Screen, Random Urine (10/09/17 05:18) Alcohol (Ethanol) (10/09/17 05:18) Lactic Acid (10/09/17 05:18) Sodium Chlor 0.9% 1000 Ml Inj (Ns 1000 M (10/09/17 05:30) Ondansetron Inj (Zofran Inj) (10/09/17 05:30) Morphine Inj (Morphine Inj) (10/09/17 05:30) Hydromorphone Pf Inj (Dilaudid Pf Inj) (10/09/17 06:15) Pantoprazole Inj (Protonix Inj) (10/09/17 06:15) Sodium Chlor 0.9% 1000 Ml Inj (Ns 1000 M (10/09/17 06:35) Sodium Chlor 0.9% 1000 Ml Inj (Ns 1000 M (10/09/17 06:35) Sodium Chlor 0.9% 1000 Ml Inj (Ns 1000 M (10/09/17 06:35) Piperacil-Tazo 4.5 Gm Premix (Zosyn 4.5 (10/09/17 06:45) Vancomycin Inj (Vancomycin Inj) (10/09/17 06:45) Ct Abd/Pel W Iv Contrast(Rout) (10/09/17 06:36) Hydromorphone Pf Inj (Dilaudid Pf Inj) (10/09/17 06:45) Labs Laboratory Tests Test 10/09/17 05:20 10/09/17 05:25 White Blood Count 12.5 TH/MM3 Red Blood Count 5.56 MIL/MM3 Hemoglobin 18.7 GM/DL Hematocrit 55.6 % Mean Corpuscular Volume 100.0 FL Mean Corpuscular Hemoglobin 33.6 PG Mean Corpuscular Hemoglobin Concent 33.6 % Red Cell Distribution Width 14.2 % Platelet Count 214 TH/MM3 Mean Platelet Volume 10.0 FL Neutrophils (%) (Auto) 71.0 % Lymphocytes (%) (Auto) 17.4 % Monocytes (%) (Auto) 9.5 % Eosinophils (%) (Auto) 1.5 % Basophils (%) (Auto) 0.6 % Neutrophils # (Auto) 8.9 TH/MM3 Lymphocytes # (Auto) 2.2 TH/MM3 Monocytes # (Auto) 1.2 TH/MM3 Eosinophils # (Auto) 0.2 TH/MM3 Basophils # (Auto) 0.1 TH/MM3 CBC Comment DIFF FINAL Differential Comment Prothrombin Time 11.2 SEC Prothromb Time International Ratio 1.0 RATIO Activated Partial Thromboplast Time 27.5 SEC Blood Urea Nitrogen 14 MG/DL Creatinine 1.32 MG/DL Random Glucose 90 MG/DL Total Protein 7.8 GM/DL Albumin 3.7 GM/DL Calcium Level 8.7 MG/DL Magnesium Level 2.2 MG/DL Alkaline Phosphatase 106 U/L Aspartate Amino Transf (AST/SGOT) 101 U/L Alanine Aminotransferase (ALT/SGPT) 115 U/L Total Bilirubin 0.7 MG/DL Sodium Level 136 MEQ/L Potassium Level 3.9 MEQ/L Chloride Level 101 MEQ/L Carbon Dioxide Level 24.4 MEQ/L Anion Gap 11 MEQ/L Estimat Glomerular Filtration Rate 58 ML/MIN Troponin I LESS THAN 0.02 NG/ML C-Reactive Protein 0.61 MG/DL Lipase 60 U/L Ethyl Alcohol Level 9 MG/DL Lactic Acid Level 5.7 mmol/L MDM Medical Decision Making Medical Screen Exam Complete: Yes Emergency Medical Condition: Yes Medical Record Reviewed: Yes Differential Diagnosis Perforated bowel, versus perforated peptic ulcer, versus pancreatitis, versus ischemic bowel, versus kidney stone Narrative Course During the course of the patients emergency department visit, the patients history, examination, and differential diagnosis were reviewed with the patient. The patient was placed on a feed mill supervisor with oximetry and frequent blood pressure monitoring. The patient had IV access obtained and blood work sent for analysis. The patient was initially provided normal saline 1 L IV fluid bolus, morphine 4 mg IV for pain, Zofran 4 mg IV for nausea. The patient had persistent pain and was given hydromorphone 1 mg IV which was again repeated 1 as the patient was screaming in pain. The patients laboratory studies were reviewed and remarkable for white count of 12.5, hemoglobin 18.7, platelets 214 with neutrophils 71, CMP is remarkable for creatinine 1.32, AST 101, ALT 115, troponin I less than 0.02, C-reactive protein 0.61, lipase 60, lactic acid 5.7, alcohol level IX Radiology studies were reviewed and remarkable for an abdominal flat and upright revealed a nonspecific bowel gas pattern, no evidence of free air. Given the patient's elevated lactate and white blood cell count the patient was started on broad-spectrum antibiotics to include Zosyn and vancomycin. The patient had a completed normal saline bolus at 30 mL per KG. Patient's case was checked out to the oncoming emergency physician to disposition the patient based on the conclusion of this workup including a CT scan of the abdomen and pelvis. Diagnosis Primary Impression: Abdominal pain Qualified Codes: R10.84 - Generalized abdominal pain Additional Impressions: Lactic acidosis Leukocytosis Qualified Codes: D72.829 - Elevated white blood cell count, unspecified Cynthia Bhardwaj MD Oct 09, 2017 05:34
[2017-10-09 06:14] LABS: AUTOMATED NEUTROPHIL # 8.9 TH/MM3 (1.8-7.7); BASOPHIL # 0.1 TH/MM3 (0-0.2); BASOPHIL % 0.6 % (0.0-2.0); EOSINOPHIL # 0.2 TH/MM3 (0-0.4); EOSINOPHIL % 1.5 % (0.0-4.0); HEMATOCRIT 55.6 % (39.0-51.0); HEMO FLAGS DIFF FINAL; LYMPH % 17.4 % (9.0-44.0); LYMPHOCYTE # 2.2 TH/MM3 (1.0-4.8); MEAN CORPUSCULAR HEMOGLOBIN 33.6 PG (27.0-34.0); MEAN CORPUSCULAR HGB CONC 33.6 % (32.0-36.0); MONO % 9.5 % (0.0-8.0); PLATELET COUNT 214 TH/MM3 (150-450); RED BLOOD COUNT 5.56 MIL/MM3 (4.50-5.90); RED CELL DISTRIBUTION WIDTH 14.2 % (11.6-17.2); WHITE BLOOD COUNT 12.5 TH/MM3 (4.0-11.0)
[2017-10-09] MEDS ORDERED: HYDROmorphone HCL PF 1 MG/ML VIAL IV PUSH ONE ×3 (06:15→11:00)
[2017-10-09] MEDS ORDERED: PANTOPRAZOLE SODIUM 40 MG VIAL IV PUSH ONE ×2 (06:15→13:00)
[2017-10-09 06:23] LABS: APTT (PATIENT) 27.5 SEC (24.3-30.1); PROTHROMBIN TIME - PATIENT 11.2 SEC (9.8-11.6)
[2017-10-09 06:28] LABS: ALKALINE PHOSPHATASE 106 U/L (45-117); TOTAL BILIRUBIN ADULT 0.7 MG/DL (0.2-1.0)
[2017-10-09 06:30] LABS: ALT (GPT) 115 U/L (12-78); ANION GAP 11 MEQ/L (5-15); AST (GOT) 101 U/L (15-37); BICARBONATE 24.4 MEQ/L (21.0-32.0); BLOOD UREA NITROGEN 14 MG/DL (7-18); CHLORIDE 101 MEQ/L (98-107); GLOMERULAR FILTRATION RATE 58 ML/MIN (>89); MAGNESIUM 2.2 MG/DL (1.5-2.5); POTASSIUM 3.9 MEQ/L (3.5-5.1); SODIUM (NA) 136 MEQ/L (136-145)
[2017-10-09 06:33] LABS: ALCOHOL 9 MG/DL (0-5)
--- NOTE | 2017-10-09 06:33 | RADRPT ---
EXAM DATE/TIME: 10/09/2017 05:50 [facility] COMPARISON: No previous studies available for comparison. INDICATIONS : Abdominal pain all over abdomen patient states. MEDICAL HISTORY : None. SURGICAL HISTORY : None. ENCOUNTER: Initial ACUITY: 1 day PAIN SCORE: 0/10 LOCATION: Bilateral abdomen FINDINGS: Supine and upright views of the abdomen were performed. The abdominal bowel gas pattern is normal. No air fluid levels are seen. There are small calcifications in the left pelvis. It is nonspecific. They are likely related to phleboliths although distal ureteral stones cannot be excluded. No abnorma l masses or organomegaly is seen. The visualized lower lungs are clear. No evidence of free intrape ritoneal gas. 3 surgical screws are seen through the right femoral neck and there is a le in the rig ht femoral shaft. CONCLUSION: Nonspecific abdominal series. Beau Small MD on October 09, 2017 at 6:30 Board Certified Radiologist. This report was verified electronically.
[2017-10-09] MEDS ORDERED: SODIUM CHLOR 0.9% 1000 ML INJ 400 ML IV ONE (06:35)
[2017-10-09] MEDS ORDERED: PIPERACIL-TAZO 4.5 GM PREMIX 100 ML IV ONE (06:45)
[2017-10-09] MEDS ORDERED: VANCOMYCIN INJ 1,000 MG in SODIUM CHLOR 0.9% 250 ML INJ 250 ML IV ONE (06:45)
[2017-10-09] MEDS ORDERED: IOHEXOL 350 MG/ML 10 ML VIAL (for RAD DIAG) IVCONTRAST ONE (07:31)
--- NOTE | 2017-10-09 07:50 | RADRPT ---
EXAM DATE/TIME: 10/09/2017 07:24 [place] COMPARISON: No previous studies available for comparison. INDICATIONS : Abdomen pain. IV CONTRAST: 75 cc Omnipaque 350 (iohexol) IV ORAL CONTRAST: No oral contrast ingested. RADIATION DOSE: 12.85 CTDIvol (mGy) MEDICAL HISTORY : Stroke. SURGICAL HISTORY : None. ENCOUNTER: Initial ACUITY: 1 day PAIN SCALE: 10/10 LOCATION: Bilateral abdomen. TECHNIQUE: Volumetric scanning of the abdomen and pelvis was performed. Using automated exposure control and ad justment of the mA and/or kV according to patient size, radiation dose was kept as low as reasonably achievable to obtain optimal diagnostic quality images. DICOM format image data is available electro nically for review and comparison. FINDINGS: LOWER LUNGS: Minimal fibrotic scarring is noted within the right lateral lung base. LIVER: Homogeneous density without lesion. There is no dilation of the biliary tree. No calcified gallston es. SPLEEN: Normal size without lesion. PANCREAS: Within normal limits. KIDNEYS: Normal in size and shape. There is no solid mass, stone or hydronephrosis. There are 3 small cysts w ithin the left kidney measuring 9, 5 and 5 mm. ADRENAL GLANDS: Within normal limits. VASCULAR: There is no aortic aneurysm. BOWEL/MESENTERY: There is mild dilatation of the small bowel which raises the possibility of partial small bowel obstr uction or ileus. Clinical correlation is recommended. Minimal ascites is noted within the abdomen and pelvis. ABDOMINAL WALL: Within normal limits. RETROPERITONEUM: There is no lymphadenopathy. BLADDER: No wall thickening or mass. REPRODUCTIVE: Within normal limits. INGUINAL: There is no lymphadenopathy or hernia. MUSCULOSKELETAL: Mild scoliosis of the lumbar spine is noted. Hardware is noted within the right femur. CONCLUSION: 1. Mild dilatation of the small bowel suggesting partial small bowel obstruction or ileus. Clinical c orrelation is recommended. 2. Minimal ascites. 3. Three small left renal cysts measuring 9, 5 and 5 mm. 4. Mild scoliosis of the lumbar spine. Alessandro Metz MD on October 09, 2017 at 7:42 Board Certified Radiologist. This report was verified electronically.
--- NOTE | 2017-10-09 08:54 | PD ---
Physical Exam Date Seen by Provider: Oct 09, 2017 Time Seen by Provider: 07:00 Narrative Patient initially seen by Dr. Bhardwaj, please see Dr. Bhardwaj's notes for further details. Here because of severe abdominal pains, lab work shows leukocytosis and lactate elevation, awaiting CAT scan for further evaluation. Laboratory Tests Test 10/09/17 05:20 10/09/17 05:25 White Blood Count 12.5 TH/MM3 (4.0-11.0) Hemoglobin 18.7 GM/DL (13.0-17.0) Hematocrit 55.6 % (39.0-51.0) Neutrophils (%) (Auto) 71.0 % (16.0-70.0) Monocytes (%) (Auto) 9.5 % (0.0-8.0) Neutrophils # (Auto) 8.9 TH/MM3 (1.8-7.7) Monocytes # (Auto) 1.2 TH/MM3 (0-0.9) Creatinine 1.32 MG/DL (0.60-1.30) Aspartate Amino Transf (AST/SGOT) 101 U/L (15-37) Alanine Aminotransferase (ALT/SGPT) 115 U/L (12-78) Estimat Glomerular Filtration Rate 58 ML/MIN (>89) Troponin I LESS THAN 0.02 NG/ML C-Reactive Protein 0.61 MG/DL (0.00-0.30) Lipase 60 U/L (73-393) Ethyl Alcohol Level 9 MG/DL (0-5) Lactic Acid Level 5.7 mmol/L (0.4-2.0) CAT scan shows ileus but did not show any other obvious acute intra-abdominal processes. His lactate levels are fairly elevated of unknown reason, questionable underlying dehydration. Patient has had IV fluids, pain medications including Dilaudid in the ER, and appears to be more comfortable on reevaluation at 8 AM but is still in quite a bit of pain. Plan would be to admit the patient for observation for further evaluation and observation for ileus. Case was discussed with Dr. Seo for admission. Data Data Last Documented VS Vital Signs Date Time Temp Pulse Resp B/P (MAP) Pulse Ox O2 Delivery O2 Flow Rate FiO2 10/09/17 08:32 91 16 131/94 (106) 96 Room Air 10/09/17 05:20 97.4 Orders Orders Complete Blood Count With Diff (10/09/17 05:18) Comprehensive Metabolic Panel (10/09/17 05:18) Troponin I (10/09/17 05:18) Prothrombin Time / Inr (Pt) (10/09/17 05:18) Act Partial Throm Time (Ptt) (10/09/17 05:18) C-Reactive Protein (Crp) (10/09/17 05:18) Lipase (10/09/17 05:18) Urinalysis - C+S If Indicated (10/09/17 05:18) Magnesium (Mg) (10/09/17 05:18) Abdomen, Flat & Upright (10/09/17 05:18) Iv Access Insert/Monitor (10/09/17 05:18) Ecg Monitoring (10/09/17 05:18) Oximetry (10/09/17 05:18) Drug Screen, Random Urine (10/09/17 05:18) Alcohol (Ethanol) (10/09/17 05:18) Lactic Acid (10/09/17 05:18) Sodium Chlor 0.9% 1000 Ml Inj (Ns 1000 M (10/09/17 05:30) Ondansetron Inj (Zofran Inj) (10/09/17 05:30) Morphine Inj (Morphine Inj) (10/09/17 05:30) Hydromorphone Pf Inj (Dilaudid Pf Inj) (10/09/17 06:15) Pantoprazole Inj (Protonix Inj) (10/09/17 06:15) Sodium Chlor 0.9% 1000 Ml Inj (Ns 1000 M (10/09/17 06:35) Sodium Chlor 0.9% 1000 Ml Inj (Ns 1000 M (10/09/17 06:35) Sodium Chlor 0.9% 1000 Ml Inj (Ns 1000 M (10/09/17 06:35) Piperacil-Tazo 4.5 Gm Premix (Zosyn 4.5 (10/09/17 06:45) Vancomycin Inj (Vancomycin Inj) (10/09/17 06:45) Ct Abd/Pel W Iv Contrast(Rout) (10/09/17 06:36) Hydromorphone Pf Inj (Dilaudid Pf Inj) (10/09/17 06:45) Iohexol 350 Inj (Omnipaque 350 Inj) (10/09/17 07:31) Admit Order (Ed Use Only) (10/09/17 08:51) Labs Laboratory Tests Test 10/09/17 05:20 10/09/17 05:25 White Blood Count 12.5 TH/MM3 Red Blood Count 5.56 MIL/MM3 Hemoglobin 18.7 GM/DL Hematocrit 55.6 % Mean Corpuscular Volume 100.0 FL Mean Corpuscular Hemoglobin 33.6 PG Mean Corpuscular Hemoglobin Concent 33.6 % Red Cell Distribution Width 14.2 % Platelet Count 214 TH/MM3 Mean Platelet Volume 10.0 FL Neutrophils (%) (Auto) 71.0 % Lymphocytes (%) (Auto) 17.4 % Monocytes (%) (Auto) 9.5 % Eosinophils (%) (Auto) 1.5 % Basophils (%) (Auto) 0.6 % Neutrophils # (Auto) 8.9 TH/MM3 Lymphocytes # (Auto) 2.2 TH/MM3 Monocytes # (Auto) 1.2 TH/MM3 Eosinophils # (Auto) 0.2 TH/MM3 Basophils # (Auto) 0.1 TH/MM3 CBC Comment DIFF FINAL Differential Comment Prothrombin Time 11.2 SEC Prothromb Time International Ratio 1.0 RATIO Activated Partial Thromboplast Time 27.5 SEC Blood Urea Nitrogen 14 MG/DL Creatinine 1.32 MG/DL Random Glucose 90 MG/DL Total Protein 7.8 GM/DL Albumin 3.7 GM/DL Calcium Level 8.7 MG/DL Magnesium Level 2.2 MG/DL Alkaline Phosphatase 106 U/L Aspartate Amino Transf (AST/SGOT) 101 U/L Alanine Aminotransferase (ALT/SGPT) 115 U/L Total Bilirubin 0.7 MG/DL Sodium Level 136 MEQ/L Potassium Level 3.9 MEQ/L Chloride Level 101 MEQ/L Carbon Dioxide Level 24.4 MEQ/L Anion Gap 11 MEQ/L Estimat Glomerular Filtration Rate 58 ML/MIN Troponin I LESS THAN 0.02 NG/ML C-Reactive Protein 0.61 MG/DL Lipase 60 U/L Ethyl Alcohol Level 9 MG/DL Lactic Acid Level 5.7 mmol/L [facility] Medical Record Reviewed: Yes Supervised Visit with ZACH: No Diagnosis Primary Impression: Abdominal pain Qualified Codes: R10.84 - Generalized abdominal pain Additional Impressions: Leukocytosis Qualified Codes: D72.829 - Elevated white blood cell count, unspecified Lactic acidosis Admitting Information Admitting Physician Requests: Admit Crow Jacobson MD Oct 09, 2017 08:54
[2017-10-09] MEDS ORDERED: ONDANSETRON HCL 4 MG/2 ML VIAL IVP PRN (09:00)
[2017-10-09] MEDS ORDERED: MAGNESIUM HYDROXIDE SUSP 30 ML CUP PO PRN (09:00)
[2017-10-09] MEDS ORDERED: SENNOSIDES 8.6 MG TAB PO PRN (09:00)
[2017-10-09] MEDS ORDERED: SODIUM CHLORIDE 0.9% FLUSH 10 ML FLUSH IV FLUSH PRN (09:00)
[2017-10-09] MEDS ORDERED: BISACODYL 10 MG SUPP RECTAL PRN (09:00)
[2017-10-09] MEDS ORDERED: THIAMINE HCL 100 MG TAB PO ONE (09:00)
[2017-10-09] MEDS ORDERED: DIATRIZOATE MEGLUM/DIATRIZOATE SOD 120 ML BTL (for RAD DIAG) NG ONE (09:00)
[2017-10-09] MEDS ORDERED: LACTULOSE SYRUP 20 GM/30 ML CUP PO PRN (09:00)
[2017-10-09] MEDS ORDERED: NALOXONE HCL 0.4 MG/ML AMP IV PUSH PRN (09:00)
--- NOTE | 2017-10-09 10:49 | HHI.HP ---
HPI Service [facility] Primary Care Physician No Primary Care Physician Admission Diagnosis ileus/elevated lactic acid levels Diagnoses: Chief Complaint: abdominal pain Travel History International Travel<30 Days: No Contact w/Intl Traveler <30 Da: No Traveled to Known Affected Are: No Sepsis Criteria SIRS Criteria (2 or more): Heart rate over 90, WBC > 55830, < 4000 or > 10% bands Sepsis Criteria (SIRS+source): Infect source susp/known Severe Sepsis (+one): Lactate >2 History of Present Illness Written by Ruthy Sifuentes, acting as scribe for Dr. Seo on 10/09/17 at 10: 47. 46-year-old male with history of tobacco use, alcohol use, marijuana use, TIA, ICH, arthritis, anxiety, bipolar, schizophrenia, presents with a 1 day history of acute onset abdominal pain, nausea/vomiting. The patient reports at 3am this morning 10/09 he was awoken from his sleep with severe constant sharp 10/10 diffuse periumbilical abdominal pain with radiation to the back. Denies fevers/ chills. He does report nausea and a few episodes of vomiting; denies hematemesis. He reports normal formed nonbloody bowel movements, last BM yesterday. He denies anything making the pain worse. He did get some minimal relief of pain with IV Dilaudid in the ER. He denies any recent NSAID use. He drinks alcohol, 2 beers at night, denies any problems with withdrawals. He adamantly denies any other illicit drug use. He has never experienced this abdominal pain in the past. Denies any dysuria. Denies any other medical complaints at this time. Review of Systems Except as stated in HPI: all other systems reviewed are Neg Past Family Social History Past Medical History TIA ICH arthritis anxiety bipolar schizophrenia Past Surgical History Right knee/femur ORIF Reported Medications Klonopin (Clonazepam) 0.5 Mg Tab 0.5 Mg PO BID Seroquel (Quetiapine Fumarate) 300 Mg Tab 600 Mg PO HS Seroquel (Quetiapine Fumarate) 25 Mg Tab 25 Mg PO BID Allergies: Coded Allergies: No Known Allergies (Verified Allergy, Unknown, 10/09/17) Active Ordered Medications Current Medications Medications (Trade) Dose Ordered Sig/Jose Route Start Time Stop Time Status Last Admin (Vitamin B1) 100 mg DAILY PO 10/10/17 09:00 Sodium Chloride 1,000 ml @ 100 mls/hr Q10H IV 10/09/17 08:51 (NS Flush) 2 ml UNSCH PRN IV FLUSH 10/09/17 09:00 (NS Flush) 2 ml BID IV FLUSH 10/09/17 09:00 (Zofran Inj) 4 mg Q6H PRN IVP 10/09/17 09:00 10/09/17 10:31 (Narcan Inj) 0.4 mg UNSCH PRN IV PUSH 10/09/17 09:00 (Milk Of Magnesia Liq) 30 ml Q12H PRN PO 10/09/17 09:00 10/09/17 10:32 (Senokot) 17.2 mg Q12H PRN PO 10/09/17 09:00 (Dulcolax Supp) 10 mg DAILY PRN RECTAL 10/09/17 09:00 (Lactulose Liq) 30 ml DAILY PRN PO 10/09/17 09:00 (Dilaudid Pf Inj) 1 mg ONCE ONCE IV PUSH 10/09/17 11:00 10/09/17 11:01 10/09/17 10:57 (Dilaudid Pf Inj) 1 mg Q4H PRN IV PUSH 10/09/17 11:00 UNV (Dilaudid Pf Inj) 0.5 mg Q4H PRN IV PUSH 10/09/17 11:00 UNV (Dilaudid Pf Inj) 1 mg Q3H PRN IV PUSH 10/09/17 11:00 UNV Family History Mother at 63 secondary to leukemia Father , patient does not know the causes Social History Smokes tobacco, 1 PPD for 30years Drinks alcohol 2 beers daily Smokes marijuana, denies any other illicit drug use Physical Exam Vital Signs Vital Signs Date Time Temp Pulse Resp B/P (MAP) Pulse Ox O2 Delivery O2 Flow Rate FiO2 10/09/17 08:32 91 16 131/94 (106) 96 Room Air 10/09/17 05:22 96 Room Air 10/09/17 05:20 97.4 10/09/17 05:08 14 98 Physical Exam GENERAL: Well-nourished, well-developed middle aged male patient in moderate distress secondary to pain. Very fidgety in the room, unable to sit still. SKIN: Warm and dry. No rash. HEAD: Normocephalic. Atraumatic. EYES: Pupils equal and round. No scleral icterus. No injection or drainage. ENT: No nasal bleeding or discharge. Mucous membranes pink and moist. NECK: Supple. Trachea midline. CARDIOVASCULAR: Regular rate and rhythm. S1, S2 noted. No murmur appreciated. RESPIRATORY: No accessory muscle use. Clear to auscultation. Breath sounds equal bilaterally. GASTROINTESTINAL: Abdomen soft, nondistended, diffuse TTP. Normoactive bowel sounds x4. MUSCULOSKELETAL: No obvious deformities. Extremities without clubbing, cyanosis , or edema. NEUROLOGICAL: Awake and alert. No obvious cranial nerve deficits. Motor grossly within normal limits. Normal speech. PSYCHIATRIC: Appropriate mood and affect; insight and judgment normal. Laboratory Laboratory Tests Test 10/09/17 05:20 10/09/17 05:25 White Blood Count 12.5 Red Blood Count 5.56 Hemoglobin 18.7 Hematocrit 55.6 Mean Corpuscular Volume 100.0 Mean Corpuscular Hemoglobin 33.6 Mean Corpuscular Hemoglobin Concent 33.6 Red Cell Distribution Width 14.2 Platelet Count 214 Mean Platelet Volume 10.0 Neutrophils (%) (Auto) 71.0 Lymphocytes (%) (Auto) 17.4 Monocytes (%) (Auto) 9.5 Eosinophils (%) (Auto) 1.5 Basophils (%) (Auto) 0.6 Neutrophils # (Auto) 8.9 Lymphocytes # (Auto) 2.2 Monocytes # (Auto) 1.2 Eosinophils # (Auto) 0.2 Basophils # (Auto) 0.1 CBC Comment DIFF FINAL Differential Comment Prothrombin Time 11.2 Prothromb Time International Ratio 1.0 Activated Partial Thromboplast Time 27.5 Blood Urea Nitrogen 14 Creatinine 1.32 Random Glucose 90 Total Protein 7.8 Albumin 3.7 Calcium Level 8.7 Magnesium Level 2.2 Alkaline Phosphatase 106 Aspartate Amino Transf (AST/SGOT) 101 Alanine Aminotransferase (ALT/SGPT) 115 Total Bilirubin 0.7 Sodium Level 136 Potassium Level 3.9 Chloride Level 101 Carbon Dioxide Level 24.4 Anion Gap 11 Estimat Glomerular Filtration Rate 58 Troponin I LESS THAN 0.02 C-Reactive Protein 0.61 Lipase 60 Ethyl Alcohol Level 9 Lactic Acid Level 5.7 Result Diagram: 10/09/1751910/09/17519 Caprinkunal VTE Risk Assessment Caprini VTE Risk Assessment: No/Low Risk (score <= 1) Caprini Risk Assessment Model Point Value = 1 Point Value = 2 Point Value = 3 Point Value = 5 Age 41-60 Minor surgery BMI > 25 kg/m2 Swollen legs Varicose veins or History of unexplained or recurrent spontaneous Oral contraceptives or hormone replacement Sepsis (< 1 month) Serious lung disease, including pneumonia (< 1 month) Abnormal pulmonary function Acute myocardial infarction Congestive heart failure (< 1 month) History of inflammatory bowel disease Medical patient at bed rest Age 61-74 Arthroscopic surgery Major open surgery (> 45 min) Laparoscopic surgery (> 45 min) Malignancy Confined to bed (> 72 hours) Immobilizing plaster cast Central venous access Age >= 75 History of VTE Family history of VTE Factor V Leiden Prothrombin [id number] Lupus anticoagulant Anticardiolipin antibodies Elevated serum homocysteine Heparin-induced thrombocytopenia Other congenital or acquired thrombophilia Stroke (< 1 month) Elective arthroplasty Hip, pelvis, or leg fracture Acute spinal cord injury (< 1 month) Prophylaxis Regimen Total Risk Factor Score Risk Level Prophylaxis Regimen 0-1 Low Early ambulation 2 Moderate Order ONE of the following: *Sequential Compression Device (SCD) *Heparin 5000 units SQ BID 3-4 Higher Order ONE of the following medications: *Heparin 5000 units SQ TID *Enoxaparin/Lovenox 40 mg SQ daily (WT < 150 kg, CrCl > 30 mL/min) *Enoxaparin/Lovenox 30 mg SQ daily (WT < 150 kg, CrCl > 10-29 mL/min) *Enoxaparin/Lovenox 30 mg SQ BID (WT < 150 kg, CrCl > 30 mL/min) AND/OR *Sequential Compression Device (SCD) 5 or more Highest Order ONE of the following medications: *Heparin 5000 units SQ TID (Preferred with Epidurals) *Enoxaparin/Lovenox 40 mg SQ daily (WT < 150 kg, CrCl > 30 mL/min) *Enoxaparin/Lovenox 30 mg SQ daily (WT < 150 kg, CrCl > 10-29 mL/min) *Enoxaparin/Lovenox 30 mg SQ BID (WT < 150 kg, CrCl > 30 mL/min) AND *Sequential Compression Device (SCD) Assessment and Plan Problem List: (1) Severe sepsis ICD Code: A41.9 - Sepsis, unspecified organism; R65.20 - Severe sepsis without septic shock (2) Lactic acidosis ICD Code: E87.2 - Acidosis Status: Acute (3) Abdominal pain ICD Code: R10.9 - Unspecified abdominal pain Status: Acute Assessment and Plan 46-year-old male with history of tobacco use, alcohol use, marijuana use, TIA, ICH, arthritis, anxiety, bipolar, schizophrenia, presents with a 1 day history of acute onset abdominal pain, nausea/vomiting. Severe Sepsis with Suspected Colitis and possible partial SBO: WBC 12.5K, tachycardic, with Lactic Acid 5.7. CT abd/pelvis images reviewed, shows mild dilatation of the small bowel suggesting partial SBO or ileus. -Ordered CTA abd/pelvis, highly concerned for ischemic colitis, however patient cannot have done until after 24hrs from previous CT w/contrast -Continue aggressive IVF hydration -Started on antibiotics with IV Zosyn -Start on IV Protonix 40mg bid -Pain control with IV Dilaudid prn -Antiemetics prn -Keep NPO for now -Monitor serial lactic acid -Check UDS -Insert NG tube -Consulted gastroenterology Lactic Acidosis: Lactate 5.7. Suspect secondary to above. -given IVF boluses and continue on IVF at 100cc/hr -repeat lactic acid -continue antibiotics Dehydration: Cr 1.32, slightly elevated compared to baseline 1.1. Suspect secondary to vomiting. -continue IVF hydration -monitor BMP -avoid nephrotoxins Tobacco Use: chronic, smokes 1PPD [id number] -counseled on cessation -avoid nicotine patch with possibility of ischemic bowel Anxiety: chronic -continue patient's home meds when no longer NPO -IV Ativan prn anxiety DVT Prophylaxis: teds/SCDs Code Status Full Discussed Condition With Patient, ER MD, CDU RN Attending Statement This note was transcribed by sylvain Sifuentes. I, Dr. Michael Seo personally performed the history, physical exam, and medical decision making; and confirmed the accuracy of the information in the transcribed note. Authenticated by Dr. Michael Seo on 10/10/17 at 07:42. Problem Qualifiers (1) Abdominal pain: Qualified Codes: R10.13 - Epigastric pain Ruthy Sifuentes PA-C Oct 09, 2017 10:49 Michael Seo MD Oct 10, 2017 07:42
[2017-10-09] MEDS ORDERED: HYDROmorphone HCL PF 0.5 MG/0.5 ML SYRINGE IV PUSH PRN (11:00)
--- NOTE | 2017-10-09 11:45 | PD.CONS ---
HPI History of Present Illness This is a 46 year old male who presented to the emergency room for evaluation of nausea, vomiting, and abdominal pain. He has chronic constipation, usually having a bowel movement every 2-3 days. He states that he does not require any laxative and usually, he will have some abdominal cramping, followed by a bowel movement. The cramping resolves after moving his bowels. About 1.5 weeks ago, he started having bad indigestion. He has been taking antacids and does get some relief with this, but states they only help for about 30 minutes. He woke up this morning around 3am with nausea and vomiting and severe abdominal pain. He complains of a severe sharp pain in his epigastric/mid abdominal area that radiates to his entire abdomen. He states that his entire abdomen is sore, but the sharp pain is in the middle of his abdomen. He went to the bathroom and had a normal formed bowel movement without any blood. Around the same time the pain started, he started having nausea/vomiting with dark bilious material. There was no blood in his emesis, but he does note that when he wiped his mouth , there was a small amount of blood on the tissue. He denies any weight loss. He came to the ER and CT scan abdomen and pelvis with IV contrast (10/09/17) revealed mild dilatation of the small bowel suggesting some partial small bowel obstruction or ileus. Clinical correlation is recommended. Minimal ascites. 3 small left renal cyst measuring 9, 5, and 5 mm, mild scoliosis of the lumbar spine. He denies any abdominal surgeries. He states that he has not had any changes in his activity. He does not take any pain medications. 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 Past Surgical History Right knee/femur ORIF Chest tube placement (Rajwinder Victor) Coded Allergies: No Known Allergies (Verified Allergy, Unknown, 10/09/17) Medications Allergies Coded Allergies Type Severity Reaction Last Updated Verified No Known Allergies Allergy Unknown 10/09/17 Yes Active Scripts Medications Dose Route/Sig Max Daily Dose Days Date Category Klonopin (Clonazepam) 0.5 Mg Tab 0.5 Mg PO BID 10/09/17 Reported Seroquel (Quetiapine Fumarate) 300 Mg Tab 600 Mg PO HS 04/25/17 Reported Seroquel (Quetiapine Fumarate) 25 Mg Tab 25 Mg PO BID 04/25/17 Reported Family History Mother at 63 secondary to acute myeloid leukemia Father , patient does not know the causes Social History Smokes tobacco, 1 PPD for 30years Drinks alcohol 2 beers daily, 3-4 days a week Smokes marijuana (one joint over 3 nights) (Rajwinder Victor) Review of Systems Constitutional: COMPLAINS OF: Fatigue Respiratory: COMPLAINS OF: Cough, DENIES: Shortness of breath Cardiovascular: COMPLAINS OF: Chest pain Gastrointestinal: COMPLAINS OF: Abdominal pain, Constipation, Nausea, Vomiting , Heartburn, DENIES: Black stools, Bloody stools, Diarrhea, Hematemesis Hematologic/lymphatic: DENIES: Bruising Neurologic: DENIES: Headache Psychiatric: COMPLAINS OF: Anxiety (Rajwinder Victor) GI Exam Vitals I&O Vital Signs Date Time Temp Pulse Resp B/P (MAP) Pulse Ox O2 Delivery O2 Flow Rate FiO2 10/09/17 08:32 91 16 131/94 (106) 96 Room Air 10/09/17 05:22 96 Room Air 10/09/17 05:20 97.4 10/09/17 05:08 14 98 I/O 10/08/17 10/08/17 10/08/17 10/09/17 10/09/17 10/09/17 07:00 15:00 23:00 07:00 15:00 23:00 Intake Total 3750 ml Balance 3750 ml Intake IV Total 3750 ml Laboratory Test 10/09/17 05:20 10/09/17 05:25 White Blood Count 12.5 TH/MM3 Red Blood Count 5.56 MIL/MM3 Hemoglobin 18.7 GM/DL Hematocrit 55.6 % Mean Corpuscular Volume 100.0 FL Mean Corpuscular Hemoglobin 33.6 PG Mean Corpuscular Hemoglobin Concent 33.6 % Red Cell Distribution Width 14.2 % Platelet Count 214 TH/MM3 Mean Platelet Volume 10.0 FL Neutrophils (%) (Auto) 71.0 % Lymphocytes (%) (Auto) 17.4 % Monocytes (%) (Auto) 9.5 % Eosinophils (%) (Auto) 1.5 % Basophils (%) (Auto) 0.6 % Neutrophils # (Auto) 8.9 TH/MM3 Lymphocytes # (Auto) 2.2 TH/MM3 Monocytes # (Auto) 1.2 TH/MM3 Eosinophils # (Auto) 0.2 TH/MM3 Basophils # (Auto) 0.1 TH/MM3 CBC Comment DIFF FINAL Differential Comment Prothrombin Time 11.2 SEC Prothromb Time International Ratio 1.0 RATIO Activated Partial Thromboplast Time 27.5 SEC Blood Urea Nitrogen 14 MG/DL Creatinine 1.32 MG/DL Random Glucose 90 MG/DL Total Protein 7.8 GM/DL Albumin 3.7 GM/DL Calcium Level 8.7 MG/DL Magnesium Level 2.2 MG/DL Alkaline Phosphatase 106 U/L Aspartate Amino Transf (AST/SGOT) 101 U/L Alanine Aminotransferase (ALT/SGPT) 115 U/L Total Bilirubin 0.7 MG/DL Sodium Level 136 MEQ/L Potassium Level 3.9 MEQ/L Chloride Level 101 MEQ/L Carbon Dioxide Level 24.4 MEQ/L Anion Gap 11 MEQ/L Estimat Glomerular Filtration Rate 58 ML/MIN Troponin I LESS THAN 0.02 NG/ML C-Reactive Protein 0.61 MG/DL Lipase 60 U/L Ethyl Alcohol Level 9 MG/DL Lactic Acid Level 5.7 mmol/L Physical Examination HEENT: Normocephalic; atraumatic; no jaundice. CHEST: CTA CARDIAC: RRR ABDOMEN: Soft, mildly distended, diffuse tenderness, no hepatosplenomegaly; bowel sounds are present in all four quadrants. EXTREMITIES: No clubbing, cyanosis, or edema. SKIN: Normal; no rash; no jaundice. STAFF SCIENTIST: No focal deficits; alert and oriented times three. (Rajwinder Victor) Assessment and Plan Plan ASSESSMENT: - Ileus vs. PSBO. CT scan abdomen and pelvis with IV contrast (10/09/17)---> Mild dialtation of the small bowel suggesting partial small bowel obstruction or ileus. Clinical correlation is recommended. Minimal ascites. Three small left renal cysts measuring 9, 5, and 5 mm. Mild scoliosis. Does have chronic constipation, typically has bowel movements every 3 days (does not take laxatives). Last BM yesterday. No chronic pain med use. Smokes MJ, takes Klonopin and Seroquel. No hx of abdominal surgeries. NGT with 800cc of gastric drainage. NPO. Will get SBFT with gastrografin in am. - N/V, Abdominal pain secondary to above. - Elevated LFTs. No prior hx of known liver issues or hepatitis. Drinks 2 beers per day. On Klonopin and seroquel, states these are not new medications. CT noted ascites. Will get hepatitis profile, AFP, RACHEL, ASMA, AMA, Ceruloplasmin, Alpha 1 Antitrypsin, Ferritin, Iron saturation. Recheck LFT in am. Avoid hepatotoxins. - Hx TIA, Anxiety, Bipolar disorder, Schizophrenia per attending PLAN: - NPO - NGT to LIWS - SBFT with gastrografin - PPI - AFP - RACHEL, ASMA, AMA - Ferritin, Iron saturation - Ceruloplasmin, Alpha 1 antitrypsin - Hepatitis profile - CBC, CMP in am - Supportive care - Further recommendations to follow based on results of above - Pt seen and examined by Dr. Tierney and myself and this note is written on her behalf (Rajwinder Victor) Physician Comments seen, examined agree with above if worse surgical consult consider egd possible colonoscopy once better (Nakia Tierney MD) Rajwinder Victor Oct 09, 2017 11:45 Nakia Tierney MD Oct 09, 2017 17:28
[2017-10-09] MEDS: SODIUM CHLORIDE 0.9% FLUSH 10 ML FLUSH IV FLUSH SCH ×2 (11:54→20:28)
[2017-10-09 12:20] LABS: BLOOD, URINE NEG (NEG); GLUCOSE,URINE NEG (NEG); KETONE, URINE 10 mg/dL (NEG); NITRITE,URINE NEG (NEG); URINE COLOR YELLOW (YELLW/STRAW)
[2017-10-09 12:21] LABS: COMMENT (UR) CATH-CULT NOT IND; CULTURE IF INDICATED CATH CULTURE NOT IND
[2017-10-09] MEDS ORDERED: LORazepam 2 MG/ML VIAL IV PUSH PRN (12:45)
[2017-10-09] MEDS: SODIUM CHLOR 0.9% 1000 ML INJ 1,000 ML IV SCH ×2 (13:36→18:51)
[2017-10-09] MEDS: PIPERACIL-TAZO 3.375 GM PREMIX 50 ML IV SCH ×2 (13:48→19:14)
[2017-10-09] MEDS: HYDROmorphone HCL PF 1 MG/ML VIAL IV PUSH PRN ×2 (15:24→20:28)
--- NOTE | 2017-10-09 20:15 | PD.CONS ---
cc: Asim Michael MD [facility] Service CONSULTATION NOTE FOR SURGICAL ATTENDING, DR. ASIM MICHAEL Consult Requested By Admitting service Reason for Consult Abdominal pain elevated lactic acid Primary Care Physician No Primary Care Physician History of Present Illness Patient was in the normal health when he slowly began experiencing abdominal pain that became more severe crampy in nature with some mild nausea and vomiting he had a bowel movement and then the pain became worse he's neverany pain like this before he had to call the ambulance to bring him to the hospital. He said he was having some indigestion and heartburn and was taking some [id number] anti-acids. He can't recall the name of them. He was worked up in the emergency room was found to have an elevated lactic acid and questionable ileus/small bowel obstruction on a CT scan Surgery was consult Since being admitted to the hospital his lactic acid has returned almost to normal after resuscitation he still having some mild abdominal cramping but feels better after an NG tube was placed and a Turner catheter. Review of Systems ROS Limitations: Clinical Condition (alert and oriented mild discomfort he says he feels a lot better than when he first came in) Constitutional: COMPLAINS OF: Fatigue, Change in appetite Endocrine: DENIES: Heat/cold intolerance, Polydipsia, Polyuria, Polyphagia Eyes: DENIES: Blurred vision, Diplopia, Eye inflammation, Eye pain, Vision loss , Photosensitivity, Double Vision Respiratory: DENIES: Apneas, Cough, Snoring, Wheezing, Hemoptysis, Sputum production, Shortness of breath Cardiovascular: COMPLAINS OF: Chest pain, DENIES: Palpitations, Syncope, Dyspnea on Exertion, PND, Lower Extremity Edema, Orthopnea, Claudication Gastrointestinal: COMPLAINS OF: Constipation, Nausea, Vomiting, DENIES: Abdominal pain, Black stools, Bloody stools, Diarrhea, Difficulty Swallowing, Anorexia Genitourinary: DENIES: Sexual dysfunction, Urinary frequency, Urinary incontinence, Urgency, Hematuria, Dysuria, Nocturia, Penile Discharge, Testicular Pain, Testicular Swelling Neurologic: DENIES: Abnormal gait, Headache, Localized weakness, Paresthesias, Seizures, Speech Problems, Tremor, Poor Balance Psychiatric: COMPLAINS OF: Mood changes, Depression, Hallucinations, Delusions Past Family Social History Past Medical History Hepatitis C Previous head trauma with brain injury Previous femur fracture from accident Past Surgical History He had a liver laceration nonoperative therapy Right femur fracture requiring surgery Previous brain injury from trauma Previous orbital fracture Reported Medications Current Medications Medications (Trade) Dose Ordered Sig/Jose Route Start Time Stop Time Status Last Admin (Vitamin B1) 100 mg DAILY PO 10/10/17 09:00 Sodium Chloride 1,000 ml @ 100 mls/hr Q10H IV 10/09/17 08:51 10/09/17 13:36 (NS Flush) 2 ml UNSCH PRN IV FLUSH 10/09/17 09:00 (NS Flush) 2 ml BID IV FLUSH 10/09/17 09:00 10/09/17 11:54 (Zofran Inj) 4 mg Q6H PRN IVP 10/09/17 09:00 10/09/17 10:31 (Narcan Inj) 0.4 mg UNSCH PRN IV PUSH 10/09/17 09:00 (Milk Of Magnesia Liq) 30 ml Q12H PRN PO 10/09/17 09:00 10/09/17 10:32 (Senokot) 17.2 mg Q12H PRN PO 10/09/17 09:00 (Dulcolax Supp) 10 mg DAILY PRN RECTAL 10/09/17 09:00 (Lactulose Liq) 30 ml DAILY PRN PO 10/09/17 09:00 (Dilaudid Pf Inj) 1 mg Q4H PRN IV PUSH 10/09/17 11:00 10/09/17 15:24 (Dilaudid Pf Inj) 0.5 mg Q4H PRN IV PUSH 10/09/17 11:00 (Dilaudid Pf Inj) 1 mg Q3H PRN IV PUSH 10/09/17 11:00 Piperacillin Sod/ Tazobactam Sod 50 ml @ 100 mls/hr Q6H IV 10/09/17 13:00 10/09/17 19:14 (Protonix Inj) 40 mg Q12H IV PUSH 10/10/17 01:00 (Ativan Inj) 0.5 mg Q6H PRN IV PUSH 10/09/17 12:45 (Flu (Quadrivalent) Vaccine Inj) 0.5 ml ONCE ONCE IM 10/10/17 10:00 10/10/17 10:01 Allergies: Coded Allergies: No Known Allergies (Verified Allergy, Unknown, 10/09/17) Active Ordered Medications Current Medications Medications (Trade) Dose Ordered Sig/Jose Route Start Time Stop Time Status Last Admin (Vitamin B1) 100 mg DAILY PO 10/10/17 09:00 Sodium Chloride 1,000 ml @ 100 mls/hr Q10H IV 10/09/17 08:51 10/09/17 13:36 (NS Flush) 2 ml UNSCH PRN IV FLUSH 10/09/17 09:00 (NS Flush) 2 ml BID IV FLUSH 10/09/17 09:00 10/09/17 11:54 (Zofran Inj) 4 mg Q6H PRN IVP 10/09/17 09:00 10/09/17 10:31 (Narcan Inj) 0.4 mg UNSCH PRN IV PUSH 10/09/17 09:00 (Milk Of Magnesia Liq) 30 ml Q12H PRN PO 10/09/17 09:00 10/09/17 10:32 (Senokot) 17.2 mg Q12H PRN PO 10/09/17 09:00 (Dulcolax Supp) 10 mg DAILY PRN RECTAL 10/09/17 09:00 (Lactulose Liq) 30 ml DAILY PRN PO 10/09/17 09:00 (Dilaudid Pf Inj) 1 mg Q4H PRN IV PUSH 10/09/17 11:00 10/09/17 15:24 (Dilaudid Pf Inj) 0.5 mg Q4H PRN IV PUSH 10/09/17 11:00 (Dilaudid Pf Inj) 1 mg Q3H PRN IV PUSH 10/09/17 11:00 Piperacillin Sod/ Tazobactam Sod 50 ml @ 100 mls/hr Q6H IV 10/09/17 13:00 10/09/17 19:14 (Protonix Inj) 40 mg Q12H IV PUSH 10/10/17 01:00 (Ativan Inj) 0.5 mg Q6H PRN IV PUSH 10/09/17 12:45 (Flu (Quadrivalent) Vaccine Inj) 0.5 ml ONCE ONCE IM 10/10/17 10:00 10/10/17 10:01 Family History Noncontributory Social History Admits to some alcohol use and marijuana use Physical Exam Vital Signs Vital Signs Date Time Temp Pulse Resp B/P (MAP) Pulse Ox O2 Delivery O2 Flow Rate FiO2 10/09/17 15:34 98.8 89 20 139/78 (98) 97 10/09/17 15:06 89 10/09/17 12:00 98.3 87 20 132/87 (102) 96 10/09/17 08:32 91 16 131/94 (106) 96 Room Air 10/09/17 05:22 96 Room Air 10/09/17 05:20 97.4 10/09/17 05:08 14 98 Physical Exam GENERAL: Well-nourished, well-developed patient. Mild distress SKIN: Warm and dry. HEAD: Normocephalic. Previous trauma NG tube in place EYES: No scleral icterus. No injection or drainage. NECK: Supple, trachea midline. No JVD or lymphadenopathy. CARDIOVASCULAR: Regular rate and rhythm without murmurs, gallops, or rubs. RESPIRATORY: Breath sounds equal bilaterally. No accessory muscle use. GASTROINTESTINAL: Abdomen soft, non-tender, nondistended. No rebound guarding Mild discomfort mid epigastric region no surgical scars Turner catheter in place EXTREMITIES: No cyanosis, or edema. Previous surgery to the right femur NEUROLOGICAL: Awake, alert, and oriented x 3. Non-focal. Laboratory Laboratory Tests Test 10/09/17 05:20 10/09/17 05:25 10/09/17 11:34 10/09/17 11:55 White Blood Count 12.5 Red Blood Count 5.56 Hemoglobin 18.7 Hematocrit 55.6 Mean Corpuscular Volume 100.0 Mean Corpuscular Hemoglobin 33.6 Mean Corpuscular Hemoglobin Concent 33.6 Red Cell Distribution Width 14.2 Platelet Count 214 Mean Platelet Volume 10.0 Neutrophils (%) (Auto) 71.0 Lymphocytes (%) (Auto) 17.4 Monocytes (%) (Auto) 9.5 Eosinophils (%) (Auto) 1.5 Basophils (%) (Auto) 0.6 Neutrophils # (Auto) 8.9 Lymphocytes # (Auto) 2.2 Monocytes # (Auto) 1.2 Eosinophils # (Auto) 0.2 Basophils # (Auto) 0.1 CBC Comment DIFF FINAL Differential Comment Prothrombin Time 11.2 Prothromb Time International Ratio 1.0 Activated Partial Thromboplast Time 27.5 Blood Urea Nitrogen 14 Creatinine 1.32 Random Glucose 90 Total Protein 7.8 Albumin 3.7 Calcium Level 8.7 Magnesium Level 2.2 Alkaline Phosphatase 106 Aspartate Amino Transf (AST/SGOT) 101 Alanine Aminotransferase (ALT/SGPT) 115 Total Bilirubin 0.7 Sodium Level 136 Potassium Level 3.9 Chloride Level 101 Carbon Dioxide Level 24.4 Anion Gap 11 Estimat Glomerular Filtration Rate 58 Troponin I LESS THAN 0.02 C-Reactive Protein 0.61 Lipase 60 Ethyl Alcohol Level 9 Lactic Acid Level 5.7 1.1 Urine Color YELLOW Urine Turbidity CLEAR Urine pH 6.0 Urine Specific [place] 1.036 Urine Protein NEG Urine Glucose (UA) NEG Urine Ketones 10 Urine Occult Blood NEG Urine Nitrite NEG Urine Bilirubin NEG Urine Urobilinogen LESS THAN 2.0 Urine Leukocyte Esterase NEG Urine RBC 1 Microscopic Urinalysis Comment CATH-CULT NOT IND Urine Opiates Screen NEG Urine Barbiturates Screen NEG Urine Amphetamines Screen POS Urine Benzodiazepines Screen NEG Urine Cocaine Screen POS Urine Cannabinoids Screen POS Test 10/09/17 15:08 Hemoglobin 16.5 Result Diagram: 10/09/17 1508 10/09/17 0520 Imaging Last Impressions Abdomen/Pelvis CT 10/09/17 0636 Signed Impressions: Service Date/Time: Monday, October 09, 2017 07:24 - CONCLUSION: 1. Mild dilatation of the small bowel suggesting partial small bowel obstruction or ileus. Clinical correlation is recommended. 2. Minimal ascites. 3. Three small left renal cysts measuring 9, 5 and 5 mm. 4. Mild scoliosis of the lumbar spine. Alessandro Metz MD Abdomen X-Ray 10/09/17 0518 Signed Impressions: Service Date/Time: Monday, October 09, 2017 05:50 - CONCLUSION: Nonspecific abdominal series. Beau Small MD Assessment and Plan Problem List: (1) Ileus ICD Codes: K56.7 - Ileus, unspecified Status: Acute (2) Gastritis ICD Codes: K29.70 - Gastritis, unspecified, without bleeding Status: Acute (3) Dehydration ICD Codes: E86.0 - Dehydration Status: Acute (4) Leukocytosis ICD Codes: D72.829 - Elevated white blood cell count, unspecified Status: Acute (5) Lactic acidosis ICD Codes: E87.2 - Acidosis Status: Acute (6) Abdominal pain ICD Codes: R10.9 - Unspecified abdominal pain Status: Acute (7) Cocaine abuse ICD Codes: F14.10 - Cocaine abuse, uncomplicated Status: Chronic (8) Depression ICD Codes: F32.9 - Major depressive disorder, single episode, unspecified Status: Chronic Assessment and Plan 46-year-old male with previous head trauma in the past with severe abdominal pain that is somewhat resolved with placement of NG tube and Turner catheter his lactic acidosis has dramatically improved. I suspect with his cocaine use and possible dehydration he had a low flow state to his GI tract resulting in mild ischemia that has recovered with IV fluids. He tells me he is getting an EGD tomorrow which I agree with because of his long -standing epigastric pain and heartburn issues and the fact that apparently they got out a fair amount of black-looking gastric contents At the time of exam he had mild discomfort in his abdomen nothing to suggest urgent surgical intervention We'll repeat KUB in the morning We will follow him during this admission Attending Statement CONSULTATION NOTE FOR SURGICAL ATTENDING, DR. ASIM MICHAEL I attest that I had a [id number] encounter with the patient on the same day, and personally performed and documented my assessment and findings in the medical record. The following services were provided during this hospital visit: Chart data review, vital sign assessments/reviewing monitor data Review of consultations notes if present. Medication orders/review and/or management Ordering and/or reviewing lab tests Ordering and/or interpreting/reviewing x-rays and/or diagnostic studies Care of the patient and discussion of the patient with the care team Documentation time To help prompt me to consider important information that might be impacting today's encounter and assessment, information from prior notes written by myself or my colleagues may have been "brought forward/copy and pasted" into today's note. Problem Qualifiers (1) Gastritis: Qualified Codes: K29.50 - Unspecified chronic gastritis without bleeding (2) Leukocytosis: Qualified Codes: D72.829 - Elevated white blood cell count, unspecified (3) Abdominal pain: Qualified Codes: R10.13 - Epigastric pain (4) Depression: Qualified Codes: F32.89 - Other specified depressive episodes Asim Michael MD Oct 09, 2017 20:15
[2017-10-09 22:23] LABS: TRANSFERRIN IRON PROFILE 244 MG/DL (200-360)
[2017-10-09 22:26] LABS: FERRITIN 53 NG/ML (26-388)
[2017-10-10] VITALS (10 sets, daily range): BP systolic 106–134; BP diastolic 67–78; PULSE 59–86; RESP 18–24; TEMP 98.3–99.3; O2SAT 94–96
[2017-10-10] MEDS: PANTOPRAZOLE SODIUM 40 MG VIAL IV PUSH SCH ×2 (00:47→13:44)
[2017-10-10] MEDS: SODIUM CHLOR 0.9% 1000 ML INJ 1,000 ML IV SCH ×2 (00:47→15:26)
[2017-10-10] MEDS: PIPERACIL-TAZO 3.375 GM PREMIX 50 ML IV SCH ×4 (00:48→19:24)
[2017-10-10] MEDS: HYDROmorphone HCL PF 1 MG/ML VIAL IV PUSH PRN ×3 (00:48→11:34)
[2017-10-10 04:23] LABS: AUTOMATED NEUTROPHIL # 6.7 TH/MM3 (1.8-7.7); BASOPHIL # 0.1 TH/MM3 (0-0.2); BASOPHIL % 0.5 % (0.0-2.0); EOSINOPHIL # 0.3 TH/MM3 (0-0.4); EOSINOPHIL % 2.5 % (0.0-4.0); HEMO FLAGS DIFF FINAL; LYMPH % 20.1 % (9.0-44.0); MEAN CELL VOLUME 99.8 FL (80.0-100.0); MEAN CORPUSCULAR HEMOGLOBIN 33.9 PG (27.0-34.0); MEAN CORPUSCULAR HGB CONC 33.9 % (32.0-36.0); MONO % 10.2 % (0.0-8.0); NEUT % 66.7 % (16.0-70.0); PLATELET COUNT 164 TH/MM3 (150-450); RED CELL DISTRIBUTION WIDTH 14.1 % (11.6-17.2); WHITE BLOOD COUNT 10.1 TH/MM3 (4.0-11.0)
[2017-10-10 04:55] LABS: BICARBONATE 26.4 MEQ/L (21.0-32.0); POTASSIUM 3.6 MEQ/L (3.5-5.1)
[2017-10-10 05:07] LABS: CALCIUM-PROTEIN CORRECTED 7.9 MG/DL (8.5-10.1); TOTAL BILIRUBIN ADULT 1.6 MG/DL (0.2-1.0)
[2017-10-10] MEDS ORDERED: DIATRIZOATE MEGLUM/DIATRIZOATE SOD 120 ML BTL (for RAD DIAG) PO ONE (08:45)
--- NOTE | 2017-10-10 09:36 | HHI.GIFU ---
Subjective Remarks Seen in radiology. In between films for small bowel series. Pt states that he feels better today, pain is down to a "5" on scale 0-10. He reports that passed flatus once last night, but has not had any today and has not had a bowel movement. His abdominal distention is improved, but the nurse does confirm that he put out 2,700cc from his NGT overnight. (Rajwinder Victor) Objective Vitals I&O Vital Signs Date Time Temp Pulse Resp B/P (MAP) Pulse Ox O2 Delivery O2 Flow Rate FiO2 10/10/17 07:51 98.7 64 24 106/69 (81) 96 10/10/17 04:31 98.3 80 20 118/73 (88) 95 10/10/17 03:32 75 10/09/17 23:34 98.7 74 20 137/73 (94) 94 10/09/17 20:37 96.3 85 18 124/83 (97) 95 10/09/17 15:34 98.8 89 20 139/78 (98) 97 10/09/17 15:06 89 10/09/17 12:00 98.3 87 20 132/87 (102) 96 I/O 10/09/17 10/09/17 10/09/17 10/10/17 10/10/17 10/10/17 07:00 15:00 23:00 07:00 15:00 23:00 Intake Total 4800 ml 240 ml Output Total 1350 ml 3150 ml Balance 4800 ml -1350 ml -2910 ml Intake Oral 240 ml IV Total 4800 ml Output Urine Total 600 ml 450 ml Gastric Drainage Total 750 ml 2700 ml # Bowel Movements 0 Laboratory Laboratory Tests Test 10/09/17 11:34 10/09/17 11:55 10/09/17 15:08 10/09/17 21:10 Urine Color YELLOW Urine Turbidity CLEAR Urine pH 6.0 Urine Specific [place] 1.036 Urine Protein NEG Urine Glucose (UA) NEG Urine Ketones 10 Urine Occult Blood NEG Urine Nitrite NEG Urine Bilirubin NEG Urine Urobilinogen LESS THAN 2.0 Urine Leukocyte Esterase NEG Urine RBC 1 Microscopic Urinalysis Comment CATH-CULT NOT IND Urine Opiates Screen NEG Urine Barbiturates Screen NEG Urine Amphetamines Screen POS Urine Benzodiazepines Screen NEG Urine Cocaine Screen POS Urine Cannabinoids Screen POS Lactic Acid Level 1.1 Hemoglobin 16.5 15.7 Iron Level 143 Total Iron Binding Capacity 342 Percent Iron Saturation 41.9 Ferritin 53 Tumor Marker Alpha Fetoprotein 2.7 Test 10/10/17 04:09 White Blood Count 10.1 Red Blood Count 4.60 Hemoglobin 15.6 Hematocrit 46.0 Mean Corpuscular Volume 99.8 Mean Corpuscular Hemoglobin 33.9 Mean Corpuscular Hemoglobin Concent 33.9 Red Cell Distribution Width 14.1 Platelet Count 164 Mean Platelet Volume 9.1 Neutrophils (%) (Auto) 66.7 Lymphocytes (%) (Auto) 20.1 Monocytes (%) (Auto) 10.2 Eosinophils (%) (Auto) 2.5 Basophils (%) (Auto) 0.5 Neutrophils # (Auto) 6.7 Lymphocytes # (Auto) 2.0 Monocytes # (Auto) 1.0 Eosinophils # (Auto) 0.3 Basophils # (Auto) 0.1 CBC Comment DIFF FINAL Differential Comment Blood Urea Nitrogen 10 Creatinine 1.11 Random Glucose 82 Total Protein 6.0 Albumin 2.9 Calcium Level 7.3 Alkaline Phosphatase 69 Aspartate Amino Transf (AST/SGOT) 51 Alanine Aminotransferase (ALT/SGPT) 65 Total Bilirubin 1.6 Sodium Level 136 Potassium Level 3.6 Chloride Level 104 Carbon Dioxide Level 26.4 Anion Gap 6 Estimat Glomerular Filtration Rate 71 Protein Corrected Calcium 7.9 Imaging Last Impressions Abdomen/Pelvis CT 10/09/17 0636 Signed Impressions: Service Date/Time: Monday, October 09, 2017 07:24 - CONCLUSION: 1. Mild dilatation of the small bowel suggesting partial small bowel obstruction or ileus. Clinical correlation is recommended. 2. Minimal ascites. 3. Three small left renal cysts measuring 9, 5 and 5 mm. 4. Mild scoliosis of the lumbar spine. Alessandro Metz MD Abdomen X-Ray 10/09/17 0518 Signed Impressions: Service Date/Time: Monday, October 09, 2017 05:50 - CONCLUSION: Nonspecific abdominal series. Beau Small MD Physical Exam HEENT: normocephalic; atraumatic; no jaundice. CHEST: Cta CARDIAC: RRR ABDOMEN: Soft, mildly distended, mild diffuse tenderness; no hepatosplenomegaly ; bowel sounds are hypoactive EXTREMITIES: No clubbing, cyanosis, or edema. SKIN: Normal; no rash; no jaundice. 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 (Rajwinder Victor) Assessment and Plan Plan ASSESSMENT: - Ileus vs. PSBO. CT scan abdomen and pelvis with IV contrast (10/09/17)---> Mild dialtation of the small bowel suggesting partial small bowel obstruction or ileus. Clinical correlation is recommended. Minimal ascites. Three small left renal cysts measuring 9, 5, and 5 mm. Mild scoliosis. Does have chronic constipation, typically has bowel movements every 3 days (does not take laxatives). Last BM yesterday. No chronic pain med use. Smokes MJ, takes Klonopin and Seroquel. (+) Amphetamines, cocaine, cannabinoids. No hx of abdominal surgeries. NPO, NGT put out 2,700cc overnight. Passed flatus x 1 last night. No BM. GS following. Zosyn. Getting SBFT. Clinically, states pain has improved today, down to a "5." - N/V, Abdominal pain secondary to above. Clinically, slightly improved. - Elevated LFTs. No prior hx of known liver issues or hepatitis. Drinks 2 beers per day. On Klonopin and seroquel, states these are not new medications. CT noted ascites. Hepatitis profile pending, AFP 2.7, RACHEL pending, ASMA pending, AMA pending, Ceruloplasmin pending, Alpha 1 Antitrypsin pending, Ferritin 53, Iron saturation 41.9%. LFTs improving. Suspect that some component of this was likely related to substance abuse. LFTs with T. Bili 1.6, AST 51, ALT 65, Alk. Phosph 69. Avoid hepatotoxins. - Hx TIA, Anxiety, Bipolar disorder, Schizophrenia per attending PLAN: - NPO - NGT to LIWS - Await SBFT with gastrografin - PPI - Zosyn - Await RACHEL, ASMA, AMA - Await Ceruloplasmin, Alpha 1 antitrypsin - Await Hepatitis profile - CBC, CMP in am - KUB in am - GS following - Supportive care - Further recommendations to follow based on results of SBFT - Pt seen and examined by Dr. Tierney and myself and this note is written on her behalf (Rajwinder Victor) Physician Comments seen, examined agree with above sbft noted-no obstruction, had few bm's decreased drainage in canister trial of clear liquid clamp ngt if no n. v -dc egd in 1-2 days depending on clinical status (Nakia Tierney MD) Rajwinder Victor Oct 10, 2017 09:36 Nakia Tierney MD Oct 10, 2017 18:38
[2017-10-10] MEDS ORDERED: INFLUENZA VIRUS VACCINE (QUADRIVALENT) 0.5 ML SYR IM ONE (10:00)
--- NOTE | 2017-10-10 11:28 | RADRPT ---
EXAM DATE/TIME: 10/10/2017 08:49 [place] COMPARISON: CT ABDOMEN & PELVIS W CONTRAST, October 09, 2017, 7:24. INDICATIONS : Obstruction vs. ileus. Abdominal pain. FLUORO TIME: 1.7 minutes IMAGE COUNT: 15 CONTRAST: MD Valdivia IMAGING TIME(S): 15 min, 30 min, 30 min, 1 hr1 hr 45 min MEDICAL HISTORY : Arthritis. TIA. Asthma. SURGICAL HISTORY : Right knee. Right femur. Right hip. ENCOUNTER: Subsequent ACUITY: 2 days PAIN SCORE: 8/10 LOCATION: abdomen FINDINGS: Preliminary film is unremarkable. The stomach is grossly unremarkable. Examination of the small bowel demonstrates normal mucosal pattern involving the jejunum and ileum. There is no evidence of mass or obstruction. No intraluminal filling defects are identified. Small bowel transit time is normal at 105 minutes. Fluoroscopy of the abdomen and terminal ileum demonstra dayo no abnormality. CONCLUSION: No obstruction. Dilated small bowel loops on CT probably represented a transient hypodynamic ile us. Tommy Mcgee MD on October 10, 2017 at 11:23 Board Certified Radiologist. This report was verified electronically.
[2017-10-10] MEDS: THIAMINE HCL 100 MG TAB PO SCH (11:30)
[2017-10-10] MEDS: SODIUM CHLORIDE 0.9% FLUSH 10 ML FLUSH IV FLUSH SCH ×2 (11:31→21:00)
--- NOTE | 2017-10-10 16:39 | HHI.PR ---
cc: Asim Michael MD Subjective Subjective Notes DAILY PROGRESS NOTE FOR SURGICAL ATTENDING, DR. ASIM MICHAEL I feel little better I slept pretty good last night because I was tired Objective Vitals/I&O Vital Signs Date Time Temp Pulse Resp B/P (MAP) Pulse Ox O2 Delivery O2 Flow Rate FiO2 10/10/17 15:40 98.5 73 22 134/76 (95) 94 10/09/17 08:32 Room Air Labs Laboratory Tests Test 10/09/17 21:10 10/10/17 04:09 10/10/17 12:10 Hemoglobin 15.7 15.6 15.3 Iron Level 143 Total Iron Binding Capacity 342 Percent Iron Saturation 41.9 Ferritin 53 Tumor Marker Alpha Fetoprotein 2.7 Hepatitis A IgM Antibody NEGATIVE Hepatitis B Surface Antigen NEGATIVE Hepatitis B Core IgM Antibody NEGATIVE Hepatitis C Antibody REACTIVE White Blood Count 10.1 Red Blood Count 4.60 Hematocrit 46.0 Mean Corpuscular Volume 99.8 Mean Corpuscular Hemoglobin 33.9 Mean Corpuscular Hemoglobin Concent 33.9 Red Cell Distribution Width 14.1 Platelet Count 164 Mean Platelet Volume 9.1 Neutrophils (%) (Auto) 66.7 Lymphocytes (%) (Auto) 20.1 Monocytes (%) (Auto) 10.2 Eosinophils (%) (Auto) 2.5 Basophils (%) (Auto) 0.5 Neutrophils # (Auto) 6.7 Lymphocytes # (Auto) 2.0 Monocytes # (Auto) 1.0 Eosinophils # (Auto) 0.3 Basophils # (Auto) 0.1 CBC Comment DIFF FINAL Differential Comment Blood Urea Nitrogen 10 Creatinine 1.11 Random Glucose 82 Total Protein 6.0 Albumin 2.9 Calcium Level 7.3 Alkaline Phosphatase 69 Aspartate Amino Transf (AST/SGOT) 51 Alanine Aminotransferase (ALT/SGPT) 65 Total Bilirubin 1.6 Sodium Level 136 Potassium Level 3.6 Chloride Level 104 Carbon Dioxide Level 26.4 Anion Gap 6 Estimat Glomerular Filtration Rate 71 Protein Corrected Calcium 7.9 Radiology Last Impressions Small Bowel X-Ray 10/10/17 0000 Signed Impressions: Service Date/Time: Tuesday, October 10, 2017 08:49 - CONCLUSION: No obstruction. Dilated small bowel loops on CT probably represented a transient hypodynamic ileus. Tommy Mcege MD Abdomen/Pelvis CT 10/09/17 0636 Signed Impressions: Service Date/Time: Monday, October 09, 2017 07:24 - CONCLUSION: 1. Mild dilatation of the small bowel suggesting partial small bowel obstruction or ileus. Clinical correlation is recommended. 2. Minimal ascites. 3. Three small left renal cysts measuring 9, 5 and 5 mm. 4. Mild scoliosis of the lumbar spine. Alessandro Metz MD Abdomen X-Ray 10/09/17 0518 Signed Impressions: Service Date/Time: Monday, October 09, 2017 05:50 - CONCLUSION: Nonspecific abdominal series. Beau Small MD Cardiovascular: Regular Lungs: Clear Abdomen: Non-distended, Other (tenderness throughout but much improved) Extremities: No edema A/P Problem List: (1) Ileus ICD Codes: K56.7 - Ileus, unspecified Status: Acute (2) Gastritis ICD Codes: K29.70 - Gastritis, unspecified, without bleeding Status: Acute (3) Dehydration ICD Codes: E86.0 - Dehydration Status: Acute (4) Leukocytosis ICD Codes: D72.829 - Elevated white blood cell count, unspecified Status: Acute (5) Lactic acidosis ICD Codes: E87.2 - Acidosis Status: Acute (6) Abdominal pain ICD Codes: R10.9 - Unspecified abdominal pain Status: Acute (7) Cocaine abuse ICD Codes: F14.10 - Cocaine abuse, uncomplicated Status: Chronic (8) Depression ICD Codes: F32.9 - Major depressive disorder, single episode, unspecified Status: Chronic Assessment and Plan 46-year-old gentleman who had acute onset abdominal pain lactic acidosis Has recovered with IV fluids and hydration. Small bowel follow through does not show obstruction just ileus May benefit from EGD No surgical intervention at this time Attending Statement NOTE FOR SURGICAL ATTENDING, DR. ASIM MICHAEL ed and agree with the findings presented. I attest that I had a [id number] encounter with the patient on the same day, and personally performed and documented my assessment and findings in the medical record. The following services were provided during this hospital visit: Chart data review, vital sign assessments/reviewing monitor data Review of consultations notes if present. Medication orders/review and/or management Ordering and/or reviewing lab tests Ordering and/or interpreting/reviewing x-rays and/or diagnostic studies Care of the patient and discussion of the patient with the care team Documentation time To help prompt me to consider important information that might be impacting today's encounter and assessment, information from prior notes written by myself or my colleagues may have been "brought forward/copy and pasted" into today's note. Problem Qualifiers (1) Gastritis: Qualified Codes: K29.50 - Unspecified chronic gastritis without bleeding (2) Leukocytosis: Qualified Codes: D72.829 - Elevated white blood cell count, unspecified (3) Abdominal pain: Qualified Codes: R10.13 - Epigastric pain (4) Depression: Qualified Codes: F32.89 - Other specified depressive episodes Asim Michael MD Oct 10, 2017 16:39
--- NOTE | 2017-10-10 16:42 | HHI.PR ---
Subjective Remarks Patient says that abdominal pain improved today. Nausea still continues, however controlled with medication. Objective Vital Signs Date Time Temp Pulse Resp B/P (MAP) Pulse Ox O2 Delivery O2 Flow Rate FiO2 10/10/17 15:40 98.5 73 22 134/76 (95) 94 10/10/17 11:27 98.5 76 24 125/78 (94) 95 10/10/17 10:05 59 10/10/17 07:51 98.7 64 24 106/69 (81) 96 10/10/17 04:31 98.3 80 20 118/73 (88) 95 10/10/17 03:32 75 10/09/17 23:34 98.7 74 20 137/73 (94) 94 10/09/17 20:37 96.3 85 18 124/83 (97) 95 I/O 10/09/17 10/09/17 10/09/17 10/10/17 10/10/17 10/10/17 07:00 15:00 23:00 07:00 15:00 23:00 Intake Total 4800 ml 240 ml 300 ml Output Total 1350 ml 3150 ml 1300 ml 450 ml Balance 4800 ml -1350 ml -2910 ml -1000 ml -450 ml Intake Oral 240 ml 250 ml IV Total 4800 ml 50 ml Output Urine Total 600 ml 450 ml 250 ml 450 ml Gastric Drainage Total 750 ml 2700 ml 1050 ml # Bowel Movements 0 1 Result Diagram: 10/10/17 1210 10/10/17 0409 Imaging Last Impressions Small Bowel X-Ray 10/10/17 0000 Signed Impressions: Service Date/Time: Tuesday, October 10, 2017 08:49 - CONCLUSION: No obstruction. Dilated small bowel loops on CT probably represented a transient hypodynamic ileus. Tommy Mcgee MD Abdomen/Pelvis CT 10/09/17 0636 Signed Impressions: Service Date/Time: Monday, October 09, 2017 07:24 - CONCLUSION: 1. Mild dilatation of the small bowel suggesting partial small bowel obstruction or ileus. Clinical correlation is recommended. 2. Minimal ascites. 3. Three small left renal cysts measuring 9, 5 and 5 mm. 4. Mild scoliosis of the lumbar spine. Alessandro Metz MD Abdomen X-Ray 10/09/17 0518 Signed Impressions: Service Date/Time: Monday, October 09, 2017 05:50 - CONCLUSION: Nonspecific abdominal series. Beau Small MD Objective Remarks GENERAL: Incision sitting up in bed, observed walking to and from the bathroom. Still appears uncomfortable, however improved. SKIN: Warm and dry. HEAD: Normocephalic. EYES: No scleral icterus. No injection or drainage. NECK: Supple, trachea midline. No JVD. CARDIOVASCULAR: Regular rate and rhythm without murmurs, gallops, or rubs. RESPIRATORY: Breath sounds equal bilaterally. No accessory muscle use. GASTROINTESTINAL: Abdomen soft, non-tender, nondistended. MUSCULOSKELETAL: No cyanosis, or edema. BACK: Nontender without obvious deformity. No CVA tenderness. A/P Assessment and Plan 46-year-old male with history of tobacco use, alcohol use, marijuana use, TIA, ICH, arthritis, anxiety, bipolar, schizophrenia, presents with a 1 day history of acute onset abdominal pain, nausea/vomiting. //Severe Sepsis with Suspected Colitis and possible partial SBO: WBC 12.5K, tachycardic, with Lactic Acid 5.7. CT abd/pelvis images reviewed, shows mild dilatation of the small bowel suggesting partial SBO or ileus. -Ordered CTA abd/pelvis, highly concerned for ischemic colitis, however patient cannot have done until after 24hrs from previous CT w/contrast -Continue aggressive IVF hydration -Started on antibiotics with IV Zosyn -Start on IV Protonix 40mg bid -Pain control with IV Dilaudid prn -Antiemetics prn -Keep NPO for now -Monitor serial lactic acid -Check UDS -Insert NG tube -Consulted gastroenterology =-Together with small bowel distention, suspicious for colitis, possibly with ischemia. Patient was started on antibiotics. White count improving. Continue antibiotics at this time. Appreciate GI assistance. Liver workup pending. Appreciate general surgery assistance. Continue NG tube to low intermittent suction. A large amount of output overnight. Continue to monitor. //Suspected ileus. Was significant 3 m output overnight. Continue NG tube. A GI assistance.. //Dehydration: Cr 1.32, slightly elevated compared to baseline 1.1. Suspect secondary to vomiting. -continue IVF hydration -monitor BMP -avoid nephrotoxins = Creatinine improved 1.0 today. Continue IV fluids. Continue to monitor. //Tobacco Use: chronic, smokes 1PPD [id number] -counseled on cessation -avoid nicotine patch with possibility of ischemic bowel //Anxiety: chronic -continue patient's home meds when no longer NPO -IV Ativan prn anxiety DVT Prophylaxis: teds/SCDs Discharge Planning GI and general surgery following. Follow up recommendations. Patient still not tolerating by mouth. Michael Seo MD Oct 10, 2017 16:42
[2017-10-10] MEDS: METOCLOPRAMIDE HCL 10 MG/2 ML VIAL IV PUSH SCH (23:09)
[2017-10-11] VITALS (10 sets, daily range): BP systolic 110–120; BP diastolic 62–76; PULSE 58–81; RESP 16–19; TEMP 98–99.1; O2SAT 94–97
[2017-10-11] MEDS: PIPERACIL-TAZO 3.375 GM PREMIX 50 ML IV SCH ×4 (01:55→20:04)
[2017-10-11] MEDS: SODIUM CHLOR 0.9% 1000 ML INJ 1,000 ML IV SCH ×3 (01:55→21:34)
[2017-10-11] MEDS: PANTOPRAZOLE SODIUM 40 MG VIAL IV PUSH SCH ×2 (01:55→14:00)
[2017-10-11] MEDS: METOCLOPRAMIDE HCL 10 MG/2 ML VIAL IV PUSH SCH ×3 (06:07→21:34)
--- NOTE | 2017-10-11 06:30 | RADRPT ---
EXAM DATE/TIME: 10/11/2017 06:09 [facility] COMPARISON: No previous studies available for comparison. INDICATIONS : Distention. MEDICAL HISTORY : Stroke. SURGICAL HISTORY : None. ENCOUNTER: Subsequent ACUITY: 3 days PAIN SCORE: Non-responsive. LOCATION: abdomen, all quadrants. FINDINGS: Distended bowel is not clearly seen. There is contrast seen within the colon being most prominent at the rectum. Orthopedic hardware is seen at the right femur. CONCLUSION: Negative KUB. Beau Small MD on October 11, 2017 at 6:27 Board Certified Radiologist. This report was verified electronically.
[2017-10-11] MEDS ORDERED: DIATRIZOATE MEGLUM/DIATRIZOATE SOD 120 ML BTL (for RAD DIAG) NG ONE (08:45)
[2017-10-11] MEDS: THIAMINE HCL 100 MG TAB PO SCH (09:00)
[2017-10-11] MEDS: SODIUM CHLORIDE 0.9% FLUSH 10 ML FLUSH IV FLUSH SCH ×2 (09:00→21:36)
[2017-10-11 09:35] LABS: AUTOMATED NEUTROPHIL # 7.1 TH/MM3 (1.8-7.7); BASOPHIL # 0.1 TH/MM3 (0-0.2); BASOPHIL % 0.5 % (0.0-2.0); EOSINOPHIL # 0.3 TH/MM3 (0-0.4); EOSINOPHIL % 3.1 % (0.0-4.0); HEMATOCRIT 44.8 % (39.0-51.0); HEMO FLAGS DIFF FINAL; LYMPH % 16.5 % (9.0-44.0); LYMPHOCYTE # 1.7 TH/MM3 (1.0-4.8); MEAN CELL VOLUME 99.5 FL (80.0-100.0); MEAN CORPUSCULAR HEMOGLOBIN 34.2 PG (27.0-34.0); MEAN CORPUSCULAR HGB CONC 34.4 % (32.0-36.0); MONO % 10.1 % (0.0-8.0); NEUT % 69.8 % (16.0-70.0); PLATELET COUNT 167 TH/MM3 (150-450); RED BLOOD COUNT 4.51 MIL/MM3 (4.50-5.90); RED CELL DISTRIBUTION WIDTH 13.6 % (11.6-17.2); WHITE BLOOD COUNT 10.2 TH/MM3 (4.0-11.0)
[2017-10-11 10:04] LABS: ANION GAP 9 MEQ/L (5-15); AST (GOT) 44 U/L (15-37); BICARBONATE 22.1 MEQ/L (21.0-32.0); BLOOD UREA NITROGEN 6 MG/DL (7-18); CHLORIDE 105 MEQ/L (98-107); GLOMERULAR FILTRATION RATE 86 ML/MIN (>89); POTASSIUM 3.5 MEQ/L (3.5-5.1); SODIUM (NA) 136 MEQ/L (136-145)
[2017-10-11 10:09] LABS: ALKALINE PHOSPHATASE 61 U/L (45-117); ALT (GPT) 52 U/L (12-78); TOTAL BILIRUBIN ADULT 1.7 MG/DL (0.2-1.0)
--- NOTE | 2017-10-11 10:12 | HHI.PR ---
Subjective Remarks Says he is feeling a little better today. Denies any chest pain or shortness of breath. Still with abdominal pain, however improving. As any nausea. Objective Vital Signs Date Time Temp Pulse Resp B/P (MAP) Pulse Ox O2 Delivery O2 Flow Rate FiO2 10/11/17 07:55 98.6 75 18 117/68 (84) 95 10/11/17 03:49 75 10/11/17 03:19 99.1 81 19 120/76 (91) 94 10/10/17 23:59 83 10/10/17 23:23 99.3 80 18 110/67 (81) 94 10/10/17 19:59 82 10/10/17 19:37 98.6 86 20 124/69 (87) 94 10/10/17 15:40 98.5 73 22 134/76 (95) 94 10/10/17 11:27 98.5 76 24 125/78 (94) 95 I/O 10/10/17 10/10/17 10/10/17 10/11/17 10/11/17 10/11/17 07:00 15:00 23:00 07:00 15:00 23:00 Intake Total 240 ml 300 ml 50 ml 1340 ml Output Total 3150 ml 1300 ml 450 ml 1250 ml Balance -2910 ml -1000 ml -400 ml 90 ml Intake Oral 240 ml 250 ml 240 ml IV Total 50 ml 50 ml 1100 ml Output Urine Total 450 ml 250 ml 450 ml 1250 ml Gastric Drainage Total 2700 ml 1050 ml # Bowel Movements 0 1 Result Diagram: 10/11/17 0857 10/10/17 0409 Objective Remarks GENERAL: pt sitting up in bed. There is much more comfortable today. SKIN: Warm and dry. HEAD: Normocephalic. EYES: No scleral icterus. No injection or drainage. NECK: Supple, trachea midline. No JVD. CARDIOVASCULAR: Regular rate and rhythm without murmurs, gallops, or rubs. RESPIRATORY: Breath sounds equal bilaterally. No accessory muscle use. GASTROINTESTINAL: Abdomen abdomen slightly tender, improved from yesterday. MUSCULOSKELETAL: No cyanosis, or edema. BACK: Nontender without obvious deformity. No CVA tenderness. A/P Assessment and Plan 46-year-old male with history of tobacco use, alcohol use, marijuana use, TIA, ICH, arthritis, anxiety, bipolar, schizophrenia, presents with a 1 day history of acute onset abdominal pain, nausea/vomiting. //Severe Sepsis with Suspected Colitis and possible partial SBO: WBC 12.5K, tachycardic, with Lactic Acid 5.7. CT abd/pelvis images reviewed, shows mild dilatation of the small bowel suggesting partial SBO or ileus. -Ordered CTA abd/pelvis, highly concerned for ischemic colitis, however patient cannot have done until after 24hrs from previous CT w/contrast -Continue aggressive IVF hydration -Started on antibiotics with IV Zosyn -Start on IV Protonix 40mg bid -Pain control with IV Dilaudid prn -Antiemetics prn -Keep NPO for now -Monitor serial lactic acid -Check UDS -Insert NG tube -Consulted gastroenterology =-Together with small bowel distention, suspicious for colitis, possibly with ischemia. Patient was started on antibiotics. White count improving. Continue antibiotics at this time. Appreciate GI assistance. Liver workup pending. Appreciate general surgery assistance. Continue NG tube to low intermittent suction. A large amount of output overnight. Continue to monitor. = Continue G-tube overnight, patient improved. Still with some abdominal discomfort. GI following. Plan for EGD possibly today or tomorrow. Positive bowel movement //Suspected ileus. Appears to be improved. Still with abdominal pain. GI following. Appreciate assistance. //Dehydration: Cr 1.32, slightly elevated compared to baseline 1.1. Suspect secondary to vomiting. -continue IVF hydration -monitor BMP -avoid nephrotoxins = Creatinine improved 1.0 yesterday. Continue IV fluids. Continue to monitor. P labs pending today. //Tobacco Use: chronic, smokes 1PPD [id number] -counseled on cessation -avoid nicotine patch with possibility of ischemic bowel //Multiple drugs on urine drug screen Amphetamines, cocaine, marijuana. Patient counseled on cessation. //Urinary retention. Possibly drug related. Move fully and monitor. //Anxiety: chronic -continue patient's home meds when no longer NPO -IV Ativan prn anxiety DVT Prophylaxis: teds/SCDs Discharge Planning GI and general surgery following. Follow up recommendations. Patient still not tolerating by mouth. Michael Seo MD Oct 11, 2017 10:12
--- NOTE | 2017-10-11 14:39 | HHI.PR ---
cc: Asim Michael MD Subjective Subjective Notes Resting in bed Tolerating clears Wants NGT out Objective Vitals/I&O Vital Signs Date Time Temp Pulse Resp B/P (MAP) Pulse Ox O2 Delivery O2 Flow Rate FiO2 10/11/17 12:15 98.2 70 16 112/62 (79) 97 10/09/17 08:32 Room Air Labs Laboratory Tests Test 10/10/17 20:11 10/11/17 08:57 Hemoglobin 14.8 15.4 White Blood Count 10.2 Red Blood Count 4.51 Hematocrit 44.8 Mean Corpuscular Volume 99.5 Mean Corpuscular Hemoglobin 34.2 Mean Corpuscular Hemoglobin Concent 34.4 Red Cell Distribution Width 13.6 Platelet Count 167 Mean Platelet Volume 9.9 Neutrophils (%) (Auto) 69.8 Lymphocytes (%) (Auto) 16.5 Monocytes (%) (Auto) 10.1 Eosinophils (%) (Auto) 3.1 Basophils (%) (Auto) 0.5 Neutrophils # (Auto) 7.1 Lymphocytes # (Auto) 1.7 Monocytes # (Auto) 1.0 Eosinophils # (Auto) 0.3 Basophils # (Auto) 0.1 CBC Comment DIFF FINAL Differential Comment Blood Urea Nitrogen 6 Creatinine 0.94 Random Glucose 77 Total Protein 6.1 Albumin 2.7 Calcium Level 7.6 Alkaline Phosphatase 61 Aspartate Amino Transf (AST/SGOT) 44 Alanine Aminotransferase (ALT/SGPT) 52 Total Bilirubin 1.7 Sodium Level 136 Potassium Level 3.5 Chloride Level 105 Carbon Dioxide Level 22.1 Anion Gap 9 Estimat Glomerular Filtration Rate 86 Radiology Last Impressions Small Bowel X-Ray 10/10/17 0000 Signed Impressions: Service Date/Time: Tuesday, October 10, 2017 08:49 - CONCLUSION: No obstruction. Dilated small bowel loops on CT probably represented a transient hypodynamic ileus. Tommy Mcgee MD Abdomen/Pelvis CT 10/09/17 0636 Signed Impressions: Service Date/Time: Monday, October 09, 2017 07:24 - CONCLUSION: 1. Mild dilatation of the small bowel suggesting partial small bowel obstruction or ileus. Clinical correlation is recommended. 2. Minimal ascites. 3. Three small left renal cysts measuring 9, 5 and 5 mm. 4. Mild scoliosis of the lumbar spine. Alessandro Metz MD Abdomen X-Ray 10/09/17 0518 Signed Impressions: Service Date/Time: Monday, October 09, 2017 05:50 - CONCLUSION: Nonspecific abdominal series. Beau Small MD Cardiovascular: Regular Lungs: Clear Abdomen: Non-distended, Non-tender Extremities: No edema A/P Problem List: (1) Ileus ICD Codes: K56.7 - Ileus, unspecified Status: Acute (2) Gastritis ICD Codes: K29.70 - Gastritis, unspecified, without bleeding Status: Acute (3) Dehydration ICD Codes: E86.0 - Dehydration Status: Acute (4) Leukocytosis ICD Codes: D72.829 - Elevated white blood cell count, unspecified Status: Acute (5) Lactic acidosis ICD Codes: E87.2 - Acidosis Status: Acute (6) Abdominal pain ICD Codes: R10.9 - Unspecified abdominal pain Status: Acute (7) Cocaine abuse ICD Codes: F14.10 - Cocaine abuse, uncomplicated Status: Chronic (8) Depression ICD Codes: F32.9 - Major depressive disorder, single episode, unspecified Status: Chronic Assessment and Plan 46 year old male with abdominal pain; SBO vs ileus -SBFT shows ileus -+BM -Tolerating clear liquids -DC NGT -Advance diet as tolerated Problem Qualifiers (1) Gastritis: Qualified Codes: K29.50 - Unspecified chronic gastritis without bleeding (2) Leukocytosis: Qualified Codes: D72.829 - Elevated white blood cell count, unspecified (3) Abdominal pain: Qualified Codes: R10.13 - Epigastric pain (4) Depression: Qualified Codes: F32.89 - Other specified depressive episodes Niesha Adkins Oct 11, 2017 14:39
--- NOTE | 2017-10-11 15:43 | HHI.GIFU ---
Subjective Remarks Pt resting in bed. Pain improved, no nausea. Having mult liquid BM. Tolerating clears. Objective Vitals I&O Vital Signs Date Time Temp Pulse Resp B/P (MAP) Pulse Ox O2 Delivery O2 Flow Rate FiO2 10/11/17 15:20 65 10/11/17 12:15 98.2 70 16 112/62 (79) 97 10/11/17 11:57 77 10/11/17 07:55 98.6 75 18 117/68 (84) 95 10/11/17 03:49 75 10/11/17 03:19 99.1 81 19 120/76 (91) 94 10/10/17 23:59 83 10/10/17 23:23 99.3 80 18 110/67 (81) 94 10/10/17 19:59 82 10/10/17 19:37 98.6 86 20 124/69 (87) 94 10/10/17 15:40 98.5 73 22 134/76 (95) 94 I/O 10/10/17 10/10/17 10/10/17 10/11/17 10/11/17 10/11/17 06:59 14:59 22:59 06:59 14:59 22:59 Intake Total 240 ml 300 ml 50 ml 1340 ml 1050 ml Output Total 3150 ml 1300 ml 450 ml 1250 ml Balance -2910 ml -1000 ml -400 ml 90 ml 1050 ml Intake Oral 240 ml 250 ml 240 ml IV Total 50 ml 50 ml 1100 ml 1050 ml Output Urine Total 450 ml 250 ml 450 ml 1250 ml Gastric Drainage Total 2700 ml 1050 ml # Voids 1 # Bowel Movements 0 1 1 Laboratory Laboratory Tests Test 10/10/17 20:11 10/11/17 08:57 Hemoglobin 14.8 15.4 White Blood Count 10.2 Red Blood Count 4.51 Hematocrit 44.8 Mean Corpuscular Volume 99.5 Mean Corpuscular Hemoglobin 34.2 Mean Corpuscular Hemoglobin Concent 34.4 Red Cell Distribution Width 13.6 Platelet Count 167 Mean Platelet Volume 9.9 Neutrophils (%) (Auto) 69.8 Lymphocytes (%) (Auto) 16.5 Monocytes (%) (Auto) 10.1 Eosinophils (%) (Auto) 3.1 Basophils (%) (Auto) 0.5 Neutrophils # (Auto) 7.1 Lymphocytes # (Auto) 1.7 Monocytes # (Auto) 1.0 Eosinophils # (Auto) 0.3 Basophils # (Auto) 0.1 CBC Comment DIFF FINAL Differential Comment Blood Urea Nitrogen 6 Creatinine 0.94 Random Glucose 77 Total Protein 6.1 Albumin 2.7 Calcium Level 7.6 Alkaline Phosphatase 61 Aspartate Amino Transf (AST/SGOT) 44 Alanine Aminotransferase (ALT/SGPT) 52 Total Bilirubin 1.7 Sodium Level 136 Potassium Level 3.5 Chloride Level 105 Carbon Dioxide Level 22.1 Anion Gap 9 Estimat Glomerular Filtration Rate 86 Imaging Last Impressions Abdomen X-Ray 10/11/17 0600 Signed Impressions: Service Date/Time: Wednesday, October 11, 2017 06:09 - CONCLUSION: Negative KUB. Beau Small MD Small Bowel X-Ray 10/10/17 0000 Signed Impressions: Service Date/Time: Tuesday, October 10, 2017 08:49 - CONCLUSION: No obstruction. Dilated small bowel loops on CT probably represented a transient hypodynamic ileus. Tommy Mcgee MD Abdomen/Pelvis CT 10/09/17 0636 Signed Impressions: Service Date/Time: Monday, October 09, 2017 07:24 - CONCLUSION: 1. Mild dilatation of the small bowel suggesting partial small bowel obstruction or ileus. Clinical correlation is recommended. 2. Minimal ascites. 3. Three small left renal cysts measuring 9, 5 and 5 mm. 4. Mild scoliosis of the lumbar spine. Alessandro Metz MD Physical Exam HEENT: normocephalic; atraumatic; no jaundice. CHEST: Cta CARDIAC: RRR ABDOMEN: Soft, mildly distended, mild diffuse tenderness; no hepatosplenomegaly ; bowel sounds + x 4 EXTREMITIES: No clubbing, cyanosis, or edema. SKIN: Normal; no rash; no jaundice. DATA TECHNICAL LEAD: No focal deficits; alert and oriented times three. Assessment and Plan Plan ASSESSMENT: - Ileus vs. PSBO. CT scan abdomen and pelvis with IV contrast (10/09/17)---> Mild dialtation of the small bowel suggesting partial small bowel obstruction or ileus. Clinical correlation is recommended. Minimal ascites. Three small left renal cysts measuring 9, 5, and 5 mm. Mild scoliosis. Does have chronic constipation, typically has bowel movements every 3 days (does not take laxatives). Last BM yesterday. No chronic pain med use. Smokes MJ, takes Klonopin and Seroquel. (+) Amphetamines, cocaine, cannabinoids. No hx of abdominal surgeries. pain improved, no nausea, tolerating clears. Had SBFT that showed no obstruction and has been having liquid stool since. KUB 10/11 NEG - N/V, Abdominal pain secondary to above. Clinically, improved. - Elevated LFTs. No prior hx of known liver issues or hepatitis. Drinks 2 beers per day. On Klonopin and seroquel, states these are not new medications. CT noted ascites. hep C ab reactive. rest of w/u pending. will get viral load and genotype. distant hx IVDU. Avoid hepatotoxins. - Hx TIA, Anxiety, Bipolar disorder, Schizophrenia per attending PLAN: - full liquids - EGD in am - obtain consent - NPO after midnight - PPI - Zosyn - await rest of liver w/u - hep c quant and genotype - GS following - Supportive care - Pt seen and examined by Dr. Tierney and myself and this note is written on her behalf Mandy Howard Oct 11, 2017 15:43
--- NOTE | 2017-10-11 15:44 | HHI.GIFU ---
Subjective Remarks resting on rt side, comfortable No nausea vomiting NG tube DC'd, she now on clear liquids after being seen per general surgery Fever 99.1 at 0300 (Aranza Marquez) Objective Vitals I&O Vital Signs Date Time Temp Pulse Resp B/P (MAP) Pulse Ox O2 Delivery O2 Flow Rate FiO2 10/11/17 15:20 65 10/11/17 12:15 98.2 70 16 112/62 (79) 97 10/11/17 11:57 77 10/11/17 07:55 98.6 75 18 117/68 (84) 95 10/11/17 03:49 75 10/11/17 03:19 99.1 81 19 120/76 (91) 94 10/10/17 23:59 83 10/10/17 23:23 99.3 80 18 110/67 (81) 94 10/10/17 19:59 82 10/10/17 19:37 98.6 86 20 124/69 (87) 94 10/10/17 15:40 98.5 73 22 134/76 (95) 94 I/O 10/10/17 10/10/17 10/10/17 10/11/17 10/11/17 10/11/17 07:00 15:00 23:00 07:00 15:00 23:00 Intake Total 240 ml 300 ml 50 ml 1340 ml 1050 ml Output Total 3150 ml 1300 ml 450 ml 1250 ml Balance -2910 ml -1000 ml -400 ml 90 ml 1050 ml Intake Oral 240 ml 250 ml 240 ml IV Total 50 ml 50 ml 1100 ml 1050 ml Output Urine Total 450 ml 250 ml 450 ml 1250 ml Gastric Drainage Total 2700 ml 1050 ml # Voids 1 # Bowel Movements 0 1 1 Laboratory Laboratory Tests Test 10/10/17 20:11 10/11/17 08:57 Hemoglobin 14.8 15.4 White Blood Count 10.2 Red Blood Count 4.51 Hematocrit 44.8 Mean Corpuscular Volume 99.5 Mean Corpuscular Hemoglobin 34.2 Mean Corpuscular Hemoglobin Concent 34.4 Red Cell Distribution Width 13.6 Platelet Count 167 Mean Platelet Volume 9.9 Neutrophils (%) (Auto) 69.8 Lymphocytes (%) (Auto) 16.5 Monocytes (%) (Auto) 10.1 Eosinophils (%) (Auto) 3.1 Basophils (%) (Auto) 0.5 Neutrophils # (Auto) 7.1 Lymphocytes # (Auto) 1.7 Monocytes # (Auto) 1.0 Eosinophils # (Auto) 0.3 Basophils # (Auto) 0.1 CBC Comment DIFF FINAL Differential Comment Blood Urea Nitrogen 6 Creatinine 0.94 Random Glucose 77 Total Protein 6.1 Albumin 2.7 Calcium Level 7.6 Alkaline Phosphatase 61 Aspartate Amino Transf (AST/SGOT) 44 Alanine Aminotransferase (ALT/SGPT) 52 Total Bilirubin 1.7 Sodium Level 136 Potassium Level 3.5 Chloride Level 105 Carbon Dioxide Level 22.1 Anion Gap 9 Estimat Glomerular Filtration Rate 86 Imaging Last Impressions Abdomen X-Ray 10/11/17 0600 Signed Impressions: Service Date/Time: Wednesday, October 11, 2017 06:09 - CONCLUSION: Negative KUB. Beau Small MD Small Bowel X-Ray 10/10/17 0000 Signed Impressions: Service Date/Time: Tuesday, October 10, 2017 08:49 - CONCLUSION: No obstruction. Dilated small bowel loops on CT probably represented a transient hypodynamic ileus. Tommy Mcgee MD Abdomen/Pelvis CT 10/09/17 0636 Signed Impressions: Service Date/Time: Monday, October 09, 2017 07:24 - CONCLUSION: 1. Mild dilatation of the small bowel suggesting partial small bowel obstruction or ileus. Clinical correlation is recommended. 2. Minimal ascites. 3. Three small left renal cysts measuring 9, 5 and 5 mm. 4. Mild scoliosis of the lumbar spine. Alessandro Metz MD Physical Exam HEENT: normocephalic; atraumatic; no jaundice. Oral pharynx clear CHEST: clear anteriorly and posteriorly about wheezes or rhonchi CARDIAC: RRR ABDOMEN: Soft, no distention noted, mild lower left and right generalized tenderness with light palpation; no hepatosplenomegaly; bowel sounds are active all 4 quadrants EXTREMITIES: No clubbing, cyanosis, or edema. SKIN: Normal; no rash; no jaundice. Turgor intact MARBLE FINISHER: No acute anxiety, alert and oriented times three., Good historian (Aranza Marquez) Assessment and Plan Plan ASSESSMENT: - Ileus vs. PSBO. CT scan abdomen and pelvis with IV contrast (10/09/17)---> Mild dialtation of the small bowel suggesting partial small bowel obstruction or ileus. Clinical correlation is recommended. Minimal ascites. Three small left renal cysts measuring 9, 5, and 5 mm. Mild scoliosis. Does have chronic constipation, typically has bowel movements every 3 days (does not take laxatives). Bowels now moving with passing of contrast and brown stool, loose. No chronic pain med use. Admitted to Smokes MJ, takes Klonopin and Seroquel. (+) Amphetamines, cocaine, cannabinoids. No hx of abdominal surgeries. NPO, NGT put out 2,700cc overnight initially. Ileus now appears to be resolving, patient placed on clear liquids and will monitor for his tolerance BMs today 2, loose passing contrast. - N/V, Abdominal pain secondary to above. No nausea or vomiting today, bowel sounds are active, abdomen is nondistended, NG tube removed and patient is tolerating clear liquids. - Elevated LFTs. No prior hx of known liver issues or hepatitis, hepatitis C profile positive on 10/09, bilirubin remains 1.7 Drinks 2 beers per day. On Klonopin and seroquel, states these are not new medications. CT noted ascites. KUB follow-up notes Patient's dilated bowel loops suspicious to transient hypodynamic ileus. Polysubstance abuse noted with cocaine, amphetamines, marijuana and alcohol. Avoid hepatotoxins. LFTs improved AST decreased to 44. - Hx TIA, Anxiety, Bipolar disorder, Schizophrenia per attending Hemoglobin stable at 15.4 no active bleeding noted Possible ischemic colitis: Patient still has symptoms of left and right generalized lower abdominal pain. Will follow symptoms and possibly look at doing CTA abd/pelvis after contrast out of system/24 hours. Continue antibiotics, still has low-grade fever PLAN: - NGT discontinued, diet advanced to clear liquids and we'll monitor for tolerance - EGD tomorrow - Pain management - PPI - Zosyn - Dependent on lower abdominal pain and symptoms, consider CTA abdomen - Awaiting multiple labs - GS following, appreciate input - Supportive care - Further recommendations to follow based on symptoms and findings - Pt seen and examined by Dr. Tierney and myself and this note is written on her behalf (Aranza Marquze) Aranza Marquez Oct 11, 2017 15:44 Nakia iTerney MD Oct 11, 2017 20:02
[2017-10-11 16:12] LABS: ANA SCREEN NEG (NEG)
[2017-10-11] MEDS ORDERED: CHLORHEXIDINE GLUCONATE 2 % 1 PACK (2 CLOTHS) TOPICAL PRN (16:15)
[2017-10-11] MEDS ORDERED: POVIDONE IODINE 5% (ANTISEPSIS KIT) 4 APPLICATIONS EACH NARE PRN (16:15)
[2017-10-11] MEDS ORDERED: METOPROLOL TARTRATE 25 MG TAB PO PRN (16:15)
[2017-10-11] MEDS ORDERED: SODIUM CHLORID 0.9% 500 ML IV PRN (16:15)
[2017-10-11] MEDS ORDERED: LACTATED RINGER'S 1000 ML IV PRN (16:15)
--- NOTE | 2017-10-11 18:15 | HHI.PR ---
cc: Asim Michael MD Subjective Subjective Notes DAILY PROGRESS NOTE FOR SURGICAL ATTENDING, DR. ASIM MICHAEL Feels better He is glad NG tube is out Objective Vitals/I&O Vital Signs Date Time Temp Pulse Resp B/P (MAP) Pulse Ox O2 Delivery O2 Flow Rate FiO2 10/11/17 16:00 98.0 66 18 110/70 (83) 97 10/09/17 08:32 Room Air Labs Laboratory Tests Test 10/10/17 20:11 10/11/17 08:57 Hemoglobin 14.8 15.4 White Blood Count 10.2 Red Blood Count 4.51 Hematocrit 44.8 Mean Corpuscular Volume 99.5 Mean Corpuscular Hemoglobin 34.2 Mean Corpuscular Hemoglobin Concent 34.4 Red Cell Distribution Width 13.6 Platelet Count 167 Mean Platelet Volume 9.9 Neutrophils (%) (Auto) 69.8 Lymphocytes (%) (Auto) 16.5 Monocytes (%) (Auto) 10.1 Eosinophils (%) (Auto) 3.1 Basophils (%) (Auto) 0.5 Neutrophils # (Auto) 7.1 Lymphocytes # (Auto) 1.7 Monocytes # (Auto) 1.0 Eosinophils # (Auto) 0.3 Basophils # (Auto) 0.1 CBC Comment DIFF FINAL Differential Comment Blood Urea Nitrogen 6 Creatinine 0.94 Random Glucose 77 Total Protein 6.1 Albumin 2.7 Calcium Level 7.6 Alkaline Phosphatase 61 Aspartate Amino Transf (AST/SGOT) 44 Alanine Aminotransferase (ALT/SGPT) 52 Total Bilirubin 1.7 Sodium Level 136 Potassium Level 3.5 Chloride Level 105 Carbon Dioxide Level 22.1 Anion Gap 9 Estimat Glomerular Filtration Rate 86 Radiology Last Impressions Abdomen X-Ray 10/11/17 0600 Signed Impressions: Service Date/Time: Wednesday, October 11, 2017 06:09 - CONCLUSION: Negative KUB. Beau Small MD Small Bowel X-Ray 10/10/17 0000 Signed Impressions: Service Date/Time: Tuesday, October 10, 2017 08:49 - CONCLUSION: No obstruction. Dilated small bowel loops on CT probably represented a transient hypodynamic ileus. Tommy Mcgee MD Abdomen/Pelvis CT 10/09/17 0636 Signed Impressions: Service Date/Time: Monday, October 09, 2017 07:24 - CONCLUSION: 1. Mild dilatation of the small bowel suggesting partial small bowel obstruction or ileus. Clinical correlation is recommended. 2. Minimal ascites. 3. Three small left renal cysts measuring 9, 5 and 5 mm. 4. Mild scoliosis of the lumbar spine. Alessandro Metz MD Cardiovascular: Regular Lungs: Clear Abdomen: Other (mild soreness less than prior) Extremities: Perfused A/P Problem List: (1) Ileus ICD Codes: K56.7 - Ileus, unspecified Status: Resolved (2) Gastritis ICD Codes: K29.70 - Gastritis, unspecified, without bleeding Status: Acute (3) Dehydration ICD Codes: E86.0 - Dehydration Status: Acute (4) Leukocytosis ICD Codes: D72.829 - Elevated white blood cell count, unspecified Status: Acute (5) Lactic acidosis ICD Codes: E87.2 - Acidosis Status: Acute (6) Abdominal pain ICD Codes: R10.9 - Unspecified abdominal pain Status: Acute (7) Cocaine abuse ICD Codes: F14.10 - Cocaine abuse, uncomplicated Status: Chronic (8) Depression ICD Codes: F32.9 - Major depressive disorder, single episode, unspecified Status: Chronic Assessment and Plan 46-year-old gentleman who had acute onset abdominal pain lactic acidosis Has recovered with IV fluids and hydration. Small bowel follow through does not show obstruction just ileus Having regular bowel movements now EGD scheduled for tomorrow No surgical intervention at this time I suspect he had severe acute gastritis with dehydration related to his social situation Attending Statement NOTE FOR SURGICAL ATTENDING, DR. ASIM MICHAEL I attest that I had a [id number] encounter with the patient on the same day, and personally performed and documented my assessment and findings in the medical record. The following services were provided during this hospital visit: Chart data review, vital sign assessments/reviewing monitor data Review of consultations notes if present. Medication orders/review and/or management Ordering and/or reviewing lab tests Ordering and/or interpreting/reviewing x-rays and/or diagnostic studies Care of the patient and discussion of the patient with the care team Documentation time To help prompt me to consider important information that might be impacting today's encounter and assessment, information from prior notes written by myself or my colleagues may have been "brought forward/copy and pasted" into today's note. Problem Qualifiers (1) Gastritis: Qualified Codes: K29.50 - Unspecified chronic gastritis without bleeding (2) Leukocytosis: Qualified Codes: D72.829 - Elevated white blood cell count, unspecified (3) Abdominal pain: Qualified Codes: R10.13 - Epigastric pain (4) Depression: Qualified Codes: F32.89 - Other specified depressive episodes Asim Michael MD Oct 11, 2017 18:15
[2017-10-12] VITALS (9 sets, daily range): BP systolic 111–137; BP diastolic 71–89; PULSE 50–69; RESP 16–18; TEMP 97.3–98.7; O2SAT 95–99
[2017-10-12] MEDS: PIPERACIL-TAZO 3.375 GM PREMIX 50 ML IV SCH ×4 (01:28→21:46)
[2017-10-12] MEDS: PANTOPRAZOLE SODIUM 40 MG VIAL IV PUSH SCH ×2 (01:28→16:27)
[2017-10-12] MEDS: METOCLOPRAMIDE HCL 10 MG/2 ML VIAL IV PUSH SCH ×3 (06:05→21:44)
[2017-10-12] MEDS: SODIUM CHLOR 0.9% 1000 ML INJ 1,000 ML IV SCH ×2 (06:06→17:35)
[2017-10-12] MEDS: THIAMINE HCL 100 MG TAB PO SCH (09:00)
[2017-10-12] MEDS: SODIUM CHLORIDE 0.9% FLUSH 10 ML FLUSH IV FLUSH SCH ×2 (09:00→21:00)
[2017-10-12] MEDS: HYDROmorphone HCL PF 1 MG/ML VIAL IV PUSH PRN ×4 (09:52→22:44)
--- NOTE | 2017-10-12 15:26 | GIPROC ---
[facility] [address] [facility]. [facility], [address] EGD PROCEDURE REPORT EXAM DATE: 10/12/2017 PATIENT NAME: Júnior Malone MR #: [id number] BIRTHDATE: 1970 ATTENDING: Nakia Tierney MD ORDER #: [id number] CIRCUIT BREAKER SUPERVISOR: Marck Padron and Kerri Fierro STATUS: inpatient INDICATIONS: The patient is a 46 yr old male here for an EGD due to abdominal pain, nausea, vomiting PROCEDURE PERFORMED: EGD w/ biopsy MEDICATIONS: None and Per Anesthesia. TOPICAL ANESTHETIC: none CONSENT: The patient understands the risks and benefits of the procedure and understands that these risks include, but are not limited to: sedation, allergic reaction, infection, perforation and/or bleeding. Alternative means of evaluation and treatment include, among others: physical exam, x-rays, and/or surgical intervention. The patient elects to proceed with this endoscopic procedure. medical equipment was checked for proper function. Hand hygiene and appropriate measures for infection prevention was taken. After the risks, benefits and alternatives of the procedure were thoroughly explained, Informed consent was verified, confirmed and timeout was successfully executed by the treatment team. The patient was anesthetized with topical anesthesia and the A vida é feita de [employer] [id number] endoscope was introduced through the mouth and advanced to the second portion of the duodenum. Retroflexed views revealed a hiatal hernia The gastroscope was then slowly withdrawn and removed. Gastritis antrum-biopsy esophagitis distal eusnzqvzu-lugipr-khsfdjd bleeding from biopsy-a clip was applied- no further bleeding polyp in upper esophagus-biopsy=5 mm. Ngt trauma in stomach body. Duodenitis duodenal bulb-mild. ADVERSE EVENTS: There were no complications. IMPRESSIONS: 1. Gastritis antrum-biopsy esophagitis distal wgcdaksjm-qrntyy-okikwmy bleeding from biopsy-a clip was applied- no further bleeding polyp in upper esophagus-biopsy=5 mm 2. Retroflexed views revealed a hiatal hernia RECOMMENDATIONS: 1. Await biopsy results. Biopsy results will not be ready for 7-10 days. If you don't hear from us in two weeks, call our office for biopsy results. 2. Anti-reflux regimen 3. Continue PPI 4. Avoid NSAIDS 5. Mrcp advance diet PATIENT CONDITION: stable DISPOSITION: Inpatient REPEAT EXAM: Return 1 year EGD Nakia Tierney MD eSigned: Nakia Tierney MD 10/12/2017 3:26 PM cc: PATIENT NAME: Júnior Malone MR#: [id number]
--- NOTE | 2017-10-12 18:08 | HHI.PR ---
Subjective Remarks Patient says he is feeling a little better today. Reports abdominal pain improved, however still present. Denies any chest pain or shortness of breath Objective Vital Signs Date Time Temp Pulse Resp B/P (MAP) Pulse Ox O2 Delivery O2 Flow Rate FiO2 10/12/17 16:49 97.9 52 18 129/87 (101) 99 10/12/17 15:25 97.0 63 18 152/80 (104) 95 10/12/17 12:05 97.9 50 16 137/84 (101) 97 10/12/17 10:00 51 10/12/17 07:52 98.1 55 18 118/74 (89) 96 10/12/17 05:28 98.7 59 17 111/71 (84) 96 10/12/17 03:41 52 10/12/17 01:31 97.3 57 16 114/72 (86) 95 10/11/17 23:59 58 10/11/17 22:42 18 10/11/17 21:30 98.4 67 18 110/76 (87) 97 10/11/17 20:00 72 I/O 10/11/17 10/11/17 10/11/17 10/12/17 10/12/17 10/12/17 07:00 15:00 23:00 07:00 15:00 23:00 Intake Total 1340 ml 1050 ml 50 ml 1100 ml 750 ml Output Total 1250 ml Balance 90 ml 1050 ml 50 ml 1100 ml 750 ml Intake Oral 240 ml IV Total 1100 ml 1050 ml 50 ml 1100 ml 50 ml Other 700 ml Output Urine Total 1250 ml # Voids 1 1 # Bowel Movements 1 1 Result Diagram: 10/11/17 0857 10/11/17 0857 Objective Remarks GENERAL: pt sitting up in bed. Appears comfortable. SKIN: Warm and dry. HEAD: Normocephalic. EYES: No scleral icterus. No injection or drainage. NECK: Supple, trachea midline. No JVD. CARDIOVASCULAR: Regular rate and rhythm without murmurs, gallops, or rubs. RESPIRATORY: Breath sounds equal bilaterally. No accessory muscle use. GASTROINTESTINAL: Abdomen still slightly tender as yesterday. No rebound or guarding. MUSCULOSKELETAL: No cyanosis, or edema. BACK: Nontender without obvious deformity. No CVA tenderness. A/P Assessment and Plan 46-year-old male with history of tobacco use, alcohol use, marijuana use, TIA, ICH, arthritis, anxiety, bipolar, schizophrenia, presents with a 1 day history of acute onset abdominal pain, nausea/vomiting. //Severe Sepsis with Suspected Colitis and possible partial SBO: WBC 12.5K, tachycardic, with Lactic Acid 5.7. CT abd/pelvis images reviewed, shows mild dilatation of the small bowel suggesting partial SBO or ileus. -Ordered CTA abd/pelvis, highly concerned for ischemic colitis, however patient cannot have done until after 24hrs from previous CT w/contrast -Continue aggressive IVF hydration -Started on antibiotics with IV Zosyn -Start on IV Protonix 40mg bid -Pain control with IV Dilaudid prn -Antiemetics prn -Keep NPO for now -Monitor serial lactic acid -Check UDS -Insert NG tube -Consulted gastroenterology =-Together with small bowel distention, suspicious for colitis, possibly with ischemia. Patient was started on antibiotics. White count improving. Continue antibiotics at this time. Appreciate GI assistance. Liver workup pending. Appreciate general surgery assistance. Continue NG tube to low intermittent suction. A large amount of output overnight. Continue to monitor. = Continue G-tube overnight, patient improved. Still with some abdominal discomfort. GI following. Plan for EGD possibly today or tomorrow. Positive bowel movement = 10/12. EGD performed with gastritis, esophagitis, biopsy. MRCP ordered and pending as per GI. //Suspected ileus. Appears resolved. //Dehydration: Cr 1.32, slightly elevated compared to baseline 1.1. Suspect secondary to vomiting. -continue IVF hydration -monitor BMP -avoid nephrotoxins = Creatinine improved .94 yesterday. Continue IV fluids. Continue to monitor. P labs pending today. //Tobacco Use: chronic, smokes 1PPD [id number] -counseled on cessation //Multiple drugs on urine drug screen Amphetamines, cocaine, marijuana. Patient counseled on cessation. //Urinary retention. Possibly drug related. Resolved after removal of Turner. //Anxiety: chronic -continue patient's home meds when no longer NPO -IV Ativan prn anxiety DVT Prophylaxis: teds/SCDs Discharge Planning MRCP pending -Pending gastroenterology clearance. Michael Seo MD Oct 12, 2017 18:08
--- NOTE | 2017-10-12 20:31 | RADRPT ---
EXAM DATE/TIME: 10/12/2017 18:40 [facility] COMPARISON: CT ABDOMEN & PELVIS W CONTRAST, October 09, 2017, 7:24. INDICATIONS : Abdominal pain. MEDICAL HISTORY : Stroke Traumatic brain injury. SURGICAL HISTORY : Right knee, right femur and right hip. ENCOUNTER: Initial ACUITY: 4-6 days PAIN SCORE: 5/10 LOCATION: Abdomen. TECHNIQUE: Multiplanar, multisequence magnetic resonance imaging of the abdomen was performed. High-resolution 3D dataset was utilized to reconstruct maximum-intensity projection (MIP) images. FINDINGS: INTRAHEPATIC BILE DUCTS: Within normal limits. No significant anatomical variant is present. EXTRAHEPATIC BILE DUCTS: The common bile duct measures 6 mm No stone or filling defect is identified. GALLBLADDER: No stones are seen. There does appear to be a phrygian cap. There is some thickening of the gallbladd er wall measuring up to 1.1 cm. There is increased signal throughout the gallbladder wall which could suggest edema. LIVER: Normal size and signal intensity. No concerning liver lesion is identified on this non-contrast exam. PANCREAS: The main pancreatic duct is normal in size. There is no significant anatomical variant. Signal inte nsity is within normal limits. No mass is visualized on this non-contrast exam. OTHER: The remaining visualized structures demonstrate no acute abnormality on this non-contrast exam. There is an 8 mm cyst at the superior lateral left kidney. There is a mild right pleural effusion and mini mal left pleural fusion. There is a small amount of ascites seen around the liver. CONCLUSION: 1. No gallstones are seen. 2. Gallbladder wall appears thickened and edematous. Gallbladder wall thickening is nonspecific. It c an be seen with hepatic disease. 3. Significant biliary duct dilatation is not seen. No filling defect is seen within the biliary syst em. Beau Small MD on October 12, 2017 at 20:24 Board Certified Radiologist. This report was verified electronically.
[2017-10-13] MEDS: PANTOPRAZOLE SODIUM 40 MG VIAL IV PUSH SCH ×2 (00:10→12:46)
[2017-10-13] MEDS: HYDROmorphone HCL PF 1 MG/ML VIAL IV PUSH PRN ×4 (00:10→12:42)
[2017-10-13 00:23] VITALS: BP 137/77; PULSE 71; RESP 18; TEMP 97.8; O2SAT 98
[2017-10-13] MEDS: SODIUM CHLOR 0.9% 1000 ML INJ 1,000 ML IV SCH ×2 (02:51→07:36)
[2017-10-13] MEDS: PIPERACIL-TAZO 3.375 GM PREMIX 50 ML IV SCH ×2 (04:23→12:41)
[2017-10-13] MEDS: METOCLOPRAMIDE HCL 10 MG/2 ML VIAL IV PUSH SCH ×2 (05:27→12:45)
[2017-10-13 08:00] VITALS: BP 124/85; PULSE 69; RESP 16; TEMP 98.5; O2SAT 94
[2017-10-13] MEDS: SODIUM CHLORIDE 0.9% FLUSH 10 ML FLUSH IV FLUSH SCH (09:00)
[2017-10-13] MEDS: THIAMINE HCL 100 MG TAB PO SCH ×2 (09:00→12:47)
--- NOTE | 2017-10-13 09:20 | HHI.GIFU ---
Subjective Remarks Sitting on side of bed Abdominal pain still persist lower abdomen HIDA scan today Vital signs stable Objective Vitals I&O Vital Signs Date Time Temp Pulse Resp B/P (MAP) Pulse Ox O2 Delivery O2 Flow Rate FiO2 10/13/17 08:00 98.5 69 16 124/85 (98) 94 10/13/17 04:53 17 10/13/17 03:06 18 10/13/17 00:23 97.8 71 18 137/77 (97) 98 10/12/17 21:34 95 21 10/12/17 21:21 97.7 69 18 124/89 (101) 95 10/12/17 16:49 97.9 52 18 129/87 (101) 99 10/12/17 15:25 97.0 63 18 152/80 (104) 95 10/12/17 12:05 97.9 50 16 137/84 (101) 97 10/12/17 10:00 51 I/O 10/12/17 10/12/17 10/12/17 10/13/17 10/13/17 10/13/17 07:00 15:00 23:00 07:00 15:00 23:00 Intake Total 1100 ml 1800 ml 1050 ml 1000 ml Balance 1100 ml 1800 ml 1050 ml 1000 ml IV Total 1100 ml 1100 ml 1050 ml 1000 ml Other 700 ml # Voids 1 3 # Bowel Movements 1 Imaging Last Impressions Cholangiopancreatography MRI 10/12/17 0000 Signed Impressions: Service Date/Time: September 18:40 - CONCLUSION: 1. No gallstones are seen. 2. Gallbladder wall appears thickened and edematous. Gallbladder wall thickening is nonspecific. It can be seen with hepatic disease. 3. Significant biliary duct dilatation is not seen. No filling defect is seen within the biliary system. Beau Small MD Abdomen X-Ray 10/11/17 0600 Signed Impressions: Service Date/Time: Wednesday, October 11, 2017 06:09 - CONCLUSION: Negative KUB. Beau Small MD Small Bowel X-Ray 10/10/17 0000 Signed Impressions: Service Date/Time: Tuesday, October 10, 2017 08:49 - CONCLUSION: No obstruction. Dilated small bowel loops on CT probably represented a transient hypodynamic ileus. Tommy Mcgee MD Abdomen/Pelvis CT 10/09/17 0636 Signed Impressions: Service Date/Time: Monday, October 09, 2017 07:24 - CONCLUSION: 1. Mild dilatation of the small bowel suggesting partial small bowel obstruction or ileus. Clinical correlation is recommended. 2. Minimal ascites. 3. Three small left renal cysts measuring 9, 5 and 5 mm. 4. Mild scoliosis of the lumbar spine. Alessandro Metz MD Physical Exam HEENT: normocephalic; atraumatic; no jaundice. Oral pharynx clear CHEST: clear anteriorly and posteriorly about wheezes or rhonchi CARDIAC: RRR ABDOMEN: Soft, no distention noted, mild lower left and right generalized tenderness continues; no hepatosplenomegaly; bowel sounds are active all 4 quadrants EXTREMITIES: No clubbing, cyanosis, or edema. SKIN: Normal; no rash; no jaundice. Turgor intact SCALES INSPECTOR: mild anxiety, alert and oriented times three., Good historian Assessment and Plan Plan ASSESSMENT: - Ileus vs. PSBO. CT scan abdomen and pelvis with IV contrast (10/09/17)---> Mild dialtation of the small bowel suggesting partial small bowel obstruction or ileus. Clinical correlation is recommended. Minimal ascites. Three small left renal cysts measuring 9, 5, and 5 mm. Mild scoliosis. Does have chronic constipation, typically has bowel movements every 3 days (does not take laxatives). Ileus resolved , Possible cholecystitis , MRCP 10-12, no gallstones seen, unremarkable exam, HIDA scan for today 10-13-17 - N/V, Abdominal pain secondary to above. nausea or vomiting resolving bowel sounds are active, abdomen is nondistended, NG tube removed and patient is tolerating clear liquids. EGD 10/12/17 showed Gastritis antrum, esophagitis distal esophagus, clip applied for minimal bleeding, polyp in upper esophagus, hiatal hernia Biopsies done. Repeat EDG in 1 yr. - Elevated LFTs. No prior hx of known liver issues or hepatitis, hepatitis C profile positive on 10/09, bilirubin remains 1.7 Drinks 2 beers per day. On Klonopin and seroquel, states these are not new medications. CT noted ascites. KUB follow-up notes Patient's dilated bowel loops suspicious to transient hypodynamic ileus. Polysubstance abuse noted with cocaine, amphetamines, marijuana and alcohol. Avoid hepatotoxins. LFTs improved. - Hx TIA, Anxiety, Bipolar disorder, Schizophrenia per attending Hemoglobin stable, no active bleeding noted Possible ischemic colitis: Patient still has symptoms of left and right generalized lower abdominal pain. Will follow symptoms and possibly look at doing CTA abd/pelvis after contrast out of system/24 hours. Continue antibiotics, still has low-grade fever PLAN: -Nothing by mouth for HIDA scan today, still complaints of some lower abdominal cramping, although pain is improved. - Anti-reflux regimen with -Continue PPI, changed to by mouth Protonix 40 mg by mouth twice a day, add Carafate 1 g before meals and at bedtime I mouth. Spoke to Dr. Church/ discharge planning -Avoid NSAIDS - GS following, appreciate input - If Ranjit JENNINGS, criss dc from GI standpoint. Can see as OP followup in 2 weeks. - Further recommendations to follow based on symptoms and findings - Pt seen and examined by Dr. Tierney and myself and this note is written on her behalf Aranza Marquez Oct 13, 2017 09:20
[2017-10-13 12:00] VITALS: BP 172/77; PULSE 90; RESP 18; TEMP 98; O2SAT 95
--- NOTE | 2017-10-13 12:08 | RADRPT ---
EXAM DATE/TIME: 10/13/2017 10:18 [facility] COMPARISON: No previous studies available for comparison. INDICATIONS : Abdomen pain. DOSE: 4.1 mCi Tc99m Mebrofenin IV MEDICAL HISTORY : Cerebrovascular disease. Hepatitis C. Polysubstance abuse. SURGICAL HISTORY : Total knee replacement, right. ENCOUNTER: Initial ACUITY: 1 day PAIN SCALE: 0/10 LOCATION: Bilateral upper quadrant TECHNIQUE: Following the intravenous administration of radiotracer, dynamic sequential images were performed wit h continuous acquisition. FINDINGS: HEPATIC KINETICS: There is prompt uptake of radiotracer in the liver. No focal defects are seen. There is normal rate of washout from the hepatic parenchyma. BILIARY CLEARANCE: Activity is first seen in the extrahepatic biliary system at 5-6 minutes. There is normal excretion into the small bowel. GALLBLADDER: Activity is first seen in the gallbladder at 8-9 minutes. Common bile duct kinetics are normal and t here is no evidence of biliary obstruction. BILIARY ENTRIC REFLUX: Moderate CONCLUSION: Bile gastric reflux. Otherwise unremarkable study Beau Lechuga MD on October 13, 2017 at 12:04 Board Certified Radiologist. This report was verified electronically.
--- NOTE | 2017-10-13 14:57 | HHI.PR ---
Subjective Remarks Follow-up visit severe sepsis with colitis possible partial SBO, gastritis. Patient seen and examined today lying in bed. Reports he is doing well. Discuss with patient's results of HIDA. Discuss with patient that he will take Carafate. Counseled on illicit drug use. Patient is adamant that he is not using amphetamines that he is use marijuana. He suspects that his roommate's Ritalin got into his medication because it is the same size as his Seroquel. Denies SOB/ dyspnea. Denies chest pain, palpitations, headaches, dizziness. Denies fevers, chills, n/v/d. Denies dysuria. Objective Vitals Vital Signs Date Time Temp Pulse Resp B/P (MAP) Pulse Ox O2 Delivery O2 Flow Rate FiO2 10/13/17 12:00 98.0 90 18 172/77 (108) 95 10/13/17 08:00 98.5 69 16 124/85 (98) 94 10/13/17 04:53 17 10/13/17 03:06 18 10/13/17 00:23 97.8 71 18 137/77 (97) 98 10/12/17 21:34 95 21 10/12/17 21:21 97.7 69 18 124/89 (101) 95 10/12/17 16:49 97.9 52 18 129/87 (101) 99 10/12/17 15:25 97.0 63 18 152/80 (104) 95 I/O 10/12/17 10/12/17 10/12/17 10/13/17 10/13/17 10/13/17 07:00 15:00 23:00 07:00 15:00 23:00 Intake Total 1100 ml 1800 ml 1050 ml 1000 ml Balance 1100 ml 1800 ml 1050 ml 1000 ml IV Total 1100 ml 1100 ml 1050 ml 1000 ml Other 700 ml # Voids 1 3 # Bowel Movements 1 Result Diagram: 10/11/17 0857 10/11/17 0857 Imaging Last Impressions Hepatobiliary Scan Nuclear Medicine 10/13/17 0000 Signed Impressions: Service Date/Time: Friday, October 13, 2017 10:18 - CONCLUSION: Bile gastric reflux. Otherwise unremarkable study Beau Lechuga MD Cholangiopancreatography MRI 10/12/17 0000 Signed Impressions: Service Date/Time: September 18:40 - CONCLUSION: 1. No gallstones are seen. 2. Gallbladder wall appears thickened and edematous. Gallbladder wall thickening is nonspecific. It can be seen with hepatic disease. 3. Significant biliary duct dilatation is not seen. No filling defect is seen within the biliary system. Beau Small MD Abdomen X-Ray 10/11/17 0600 Signed Impressions: Service Date/Time: Wednesday, October 11, 2017 06:09 - CONCLUSION: Negative KUB. Beau Small MD Small Bowel X-Ray 10/10/17 0000 Signed Impressions: Service Date/Time: Tuesday, October 10, 2017 08:49 - CONCLUSION: No obstruction. Dilated small bowel loops on CT probably represented a transient hypodynamic ileus. Tommy Mcgee MD Abdomen/Pelvis CT 10/09/17 0636 Signed Impressions: Service Date/Time: Monday, October 09, 2017 07:24 - CONCLUSION: 1. Mild dilatation of the small bowel suggesting partial small bowel obstruction or ileus. Clinical correlation is recommended. 2. Minimal ascites. 3. Three small left renal cysts measuring 9, 5 and 5 mm. 4. Mild scoliosis of the lumbar spine. Alessandro Metz MD Objective Remarks GENERAL: This is a well-nourished, well-developed patient, in no apparent distress. SKIN: Warm and dry. HEENT: Normocephalic. Pupils equal round and reactive. Nose without bleeding. Airway patent. NECK: Trachea midline. No JVD. Supple. CARDIOVASCULAR: Regular rate and rhythm without murmurs, gallops, or rubs. RESPIRATORY: Clear to auscultation. Breath sounds equal bilaterally. No wheezes , rales, or rhonchi. GASTROINTESTINAL: Abdomen soft, non-tender, nondistended. Bowel Sounds normoactive x4. MUSCULOSKELETAL: Extremities without clubbing, cyanosis, or edema. NEUROLOGICAL: Awake and alert. Oriented to time, place, person. No focal neuro deficit. Moves all extremities. Normal speech. Procedures Status post EGD A/P Problem List: (1) Severe sepsis ICD Code: A41.9 - Sepsis, unspecified organism; R65.20 - Severe sepsis without septic shock (2) Lactic acidosis ICD Code: E87.2 - Acidosis Status: Acute (3) Abdominal pain ICD Code: R10.9 - Unspecified abdominal pain Status: Acute Assessment and Plan Patient is a 46-year-old male with history of tobacco use, alcohol use, marijuana use, TIA, ICH, arthritis, anxiety, bipolar, schizophrenia, presents with a 1 day history of acute onset abdominal pain, nausea/vomiting. Severe Sepsis with Suspected Colitis and possible partial SBO: WBC 12.5K, tachycardic, with Lactic Acid 5.7. - CT abd/pelvis images reviewed, shows mild dilatation of the small bowel suggesting partial SBO or ileus. - Ordered CTA abd/pelvis, highly concerned for ischemic colitis, however patient cannot have done until after 24hrs from previous CT w/contrast - 10/12/17 EGD was performed and showed gastritis, esophagitis. - Patient continued on pantoprazole IV. We'll switch over to by mouth today. - HIDA scan was done and showed mild gastric reflux. Otherwise unremarkable study. - Gastroenterology following. Diet has been advanced to regular. Zofran, Reglan when necessary. - As per GI patient is cleared to go home with Carafate and by mouth pantoprazole. Will DC Zosyn, Dilaudid for pain. RAMANDEEP Dehydration: Cr 1.32, slightly elevated compared to baseline 1.1. Suspect secondary to vomiting. - IV fluid hydration - Resolved. Recent creatinine 0.94 Chronic tobacco use Polysubstance abuse - Patient was counseled. Denies any use of amphetamines or cocaine. States that he probably mistakenly took his roommates Ritalin. - counseled on tobacco cessation DVT Prophylaxis: teds/SCDs Discussed with patient, nursing, Dr. Church Discharge Planning Plan to discharge home today. GI cleared patient to go home. Attending Statement The exam, history, and the medical decision-making described in the above note were completed with the assistance of the mid-level provider. I reviewed and agree with the findings presented. I attest that I had a [id number] encounter with the patient on the same day, and personally performed and documented my assessment and findings in the medical record. Patient seen after HIDA scan completed. He had no complaints. Denied abdominal pain or nausea vomiting. Patient very anxious to eat. I gave him his tray. He is able to tolerate his diet. gen NAD Abd soft nondistended nontender. No peritoneal signs. Respiratory CTA B/L Assessment and plan Assessment and plan Severe sepsis/colitis HIDA scan shows biliary reflux. Discussed case with GI there is practitioner Aranza Marquez who stated that okay to discharge patient on Carafate and Protonix. Problem Qualifiers (1) Abdominal pain: Qualified Codes: R10.13 - Epigastric pain Julia Mayen Oct 13, 2017 14:57 Ila Church MD Oct 15, 2017 16:14
--- NOTE | 2017-10-13 14:58 | HHI.DS ---
Discharge Summary Admission Date Oct 10, 2017 at 16:43 Discharge Date: Oct 13, 2017 Admitting Diagnosis ileus/elevated lactic acid levels (1) Severe sepsis ICD Code: A41.9 - Sepsis, unspecified organism; R65.20 - Severe sepsis without septic shock Diagnosis: Principal (2) Lactic acidosis ICD Code: E87.2 - Acidosis Diagnosis: Principal Status: Acute (3) Abdominal pain ICD Code: R10.9 - Unspecified abdominal pain Diagnosis: Principal Status: Acute Procedures Status post EGD Brief History - From Admission Written by Ruthy Sifuentes, acting as scribe for Dr. Seo on 10/09/17 at 10: 47. 46-year-old male with history of tobacco use, alcohol use, marijuana use, TIA, ICH, arthritis, anxiety, bipolar, schizophrenia, presents with a 1 day history of acute onset abdominal pain, nausea/vomiting. The patient reports at 3am this morning 10/09 he was awoken from his sleep with severe constant sharp 10/10 diffuse periumbilical abdominal pain with radiation to the back. Denies fevers/ chills. He does report nausea and a few episodes of vomiting; denies hematemesis. He reports normal formed nonbloody bowel movements, last BM yesterday. He denies anything making the pain worse. He did get some minimal relief of pain with IV Dilaudid in the ER. He denies any recent NSAID use. He drinks alcohol, 2 beers at night, denies any problems with withdrawals. He adamantly denies any other illicit drug use. He has never experienced this abdominal pain in the past. Denies any dysuria. Denies any other medical complaints at this time. CBC/BMP: 10/11/17 0857 10/11/17 0857 Significant Findings Laboratory Tests Test 10/10/17 20:11 10/11/17 08:57 10/12/17 07:32 Mean Corpuscular Hemoglobin 34.2 PG (27.0-34.0) Monocytes (%) (Auto) 10.1 % (0.0-8.0) Monocytes # (Auto) 1.0 TH/MM3 (0-0.9) Blood Urea Nitrogen 6 MG/DL (7-18) Total Protein 6.1 GM/DL (6.4-8.2) Albumin 2.7 GM/DL (3.4-5.0) Calcium Level 7.6 MG/DL (8.5-10.1) Aspartate Amino Transf (AST/SGOT) 44 U/L (15-37) Total Bilirubin 1.7 MG/DL (0.2-1.0) Estimat Glomerular Filtration Rate 86 ML/MIN (>89) Imaging Last Impressions Hepatobiliary Scan Nuclear Medicine 10/13/17 0000 Signed Impressions: Service Date/Time: Friday, October 13, 2017 10:18 - CONCLUSION: Bile gastric reflux. Otherwise unremarkable study Beau Lechuga MD Cholangiopancreatography MRI 10/12/17 0000 Signed Impressions: Service Date/Time: September 18:40 - CONCLUSION: 1. No gallstones are seen. 2. Gallbladder wall appears thickened and edematous. Gallbladder wall thickening is nonspecific. It can be seen with hepatic disease. 3. Significant biliary duct dilatation is not seen. No filling defect is seen within the biliary system. Beau Small MD Abdomen X-Ray 10/11/17 0600 Signed Impressions: Service Date/Time: Wednesday, October 11, 2017 06:09 - CONCLUSION: Negative KUB. Beau Small MD Small Bowel X-Ray 10/10/17 0000 Signed Impressions: Service Date/Time: Tuesday, October 10, 2017 08:49 - CONCLUSION: No obstruction. Dilated small bowel loops on CT probably represented a transient hypodynamic ileus. Tommy Mcgee MD Abdomen/Pelvis CT 10/09/17 0636 Signed Impressions: Service Date/Time: Monday, October 09, 2017 07:24 - CONCLUSION: 1. Mild dilatation of the small bowel suggesting partial small bowel obstruction or ileus. Clinical correlation is recommended. 2. Minimal ascites. 3. Three small left renal cysts measuring 9, 5 and 5 mm. 4. Mild scoliosis of the lumbar spine. Alessandro Metz MD PE at Discharge GENERAL: This is a well-nourished, well-developed patient, in no apparent distress. SKIN: Warm and dry. HEENT: Normocephalic. Pupils equal round and reactive. Nose without bleeding. Airway patent. NECK: Trachea midline. No JVD. Supple. CARDIOVASCULAR: Regular rate and rhythm without murmurs, gallops, or rubs. RESPIRATORY: Clear to auscultation. Breath sounds equal bilaterally. No wheezes , rales, or rhonchi. GASTROINTESTINAL: Abdomen soft, non-tender, nondistended. Bowel Sounds normoactive x4. MUSCULOSKELETAL: Extremities without clubbing, cyanosis, or edema. NEUROLOGICAL: Awake and alert. Oriented to time, place, person. No focal neuro deficit. Moves all extremities. Normal speech. Pt update on day of discharge Follow-up visit severe sepsis with colitis possible partial SBO, gastritis. Patient seen and examined today lying in bed. Reports he is doing well. Discuss with patient's results of HIDA. Discuss with patient that he will take Carafate. Counseled on illicit drug use. Patient is adamant that he is not using amphetamines that he is use marijuana. He suspects that his roommate's Ritalin got into his medication because it is the same size as his Seroquel. Denies SOB/ dyspnea. Denies chest pain, palpitations, headaches, dizziness. Denies fevers, chills, n/v/d. Denies dysuria. Hospital Course Patient is a 46-year-old male with primary medical history of tobacco use, alcohol use, marijuana use, TIA, ICH, arthritis, anxiety, bipolar, schizophrenia who came in to the ED with acute abdominal pain, nausea vomiting. Patient was found to be in severe sepsis with suspected colitis and partial small bowel obstruction. CAT scan of the abdomen and pelvis showed some mild dilatation of the small bowel suggesting partial small bowel obstruction or ileus. Gastro enterologist has been following the patient and an EGD was done that showed gastritis and esophagitis. HIDA scan was also done that showed mild gastric reflux. Recommended to have by mouth pantoprazole and Carafate. Patient was also found to have acute kidney injury, secondary to dehydration but with IV fluids creatinine improved. Patient has clinically improved. Patient has met maximal benefits of hospitalization. Clinically stable for discharge. Tolerating his diet without any nausea and vomiting today. Patient was counseled on tobacco use, polysubstance abuse. Patient denies taking any amphetamines or cocaine. States he probably mistakenly took his roommates Ritalin. Pt Condition on Discharge: Good Discharge Disposition: Disch w/ Home Health Serv Discharge Time: <= 30 minutes Discharge Instructions DIET: Follow Instructions for: As Tolerated, No Restrictions Activities you can perform: Regular-No Restrictions Activities to Avoid: Driving for 24 hrs Follow up Referrals: Gastroenterology - 4 Weeks with Nakia Tierney MD PCP Follow-up - 1 Week New Medications: Ondansetron (Zofran) 4 Mg Tab 4 MG PO Q6HR PRN for NAUSEA OR VOMITING, #10 TAB 0 Refills Pantoprazole (Pantoprazole) 40 Mg Tab 40 MG PO Q12HR for Reflux, #60 TAB Sucralfate (Carafate) 1 Gram Tab 1 GM PO ACHS for Reflux, #120 TAB Thiamine HCl (Gnp Vitamin B-1) 100 Mg Tab 100 MG PO DAILY for Nutritional Supplement, #30 TAB Continued Medications: Clonazepam (Klonopin) 0.5 Mg Tab 0.5 MG PO BID, #60 TAB 0 Refills Quetiapine (Seroquel) 25 Mg Tab 25 MG PO BID, #60 TAB 0 Refills Quetiapine (Seroquel) 300 Mg Tab 600 MG PO HS, #30 TAB 0 Refills Additional Information The exam, history, and the medical decision-making described in the above note were completed with the assistance of the mid-level provider. I reviewed and agree with the findings presented. I attest that I had a [id number] encounter with the patient on the same day, and personally performed and documented my assessment and findings in the medical record. Julia Mayen Oct 13, 2017 14:58 Ila Church MD Oct 15, 2017 16:14
--- NOTE | 2017-10-13 14:58 | HHI.DCPOC ---
Discharge Care Plan Diagnosis: (1) Abdominal pain (2) Gastritis (3) Dehydration Your Health Problems Are: Inflammation Goals to Promote Your Health * To prevent worsening of your condition and complications * To maintain your health at the optimal level Directions to Meet Your Goals Take your medications as prescribed Follow your dietary instruction Follow activity as directed Keep your appointments as scheduled Take your immunizations and boosters as scheduled If your symptoms worsen call your PCP, if no PCP go to Urgent Care Center or Emergency Room Smoking is Dangerous to Your Health. Avoid second hand smoke Call the 24-hour hour crisis hotline for domestic abuse at Julia Mayen [facility] Oct 13, 2017 14:58
[2017-10-13] MEDS ORDERED: PANT40TA3 PO (15:24)
[2017-10-13] MEDS ORDERED: THIA100 PO (15:24)
[2017-10-13] MEDS ORDERED: ZOFR4TAB PO (15:24)
[2017-10-13] MEDS ORDERED: CARA1TAB6 PO (15:24)
--- NOTE | 2017-10-13 15:52 | HHI.PR ---
cc: Asim Michael MD Subjective Subjective Notes Upset he missed breakfast for HIDA scan Objective Vitals/I&O Vital Signs Date Time Temp Pulse Resp B/P (MAP) Pulse Ox O2 Delivery O2 Flow Rate FiO2 10/13/17 12:00 98.0 90 18 172/77 (108) 95 10/12/17 21:34 21 10/09/17 08:32 Room Air Radiology Last Impressions Abdomen X-Ray 10/11/17 0600 Signed Impressions: Service Date/Time: Wednesday, October 11, 2017 06:09 - CONCLUSION: Negative KUB. Beau Small MD Small Bowel X-Ray 10/10/17 0000 Signed Impressions: Service Date/Time: Tuesday, October 10, 2017 08:49 - CONCLUSION: No obstruction. Dilated small bowel loops on CT probably represented a transient hypodynamic ileus. Tommy Mcgee MD Abdomen/Pelvis CT 10/09/17 0636 Signed Impressions: Service Date/Time: Monday, October 09, 2017 07:24 - CONCLUSION: 1. Mild dilatation of the small bowel suggesting partial small bowel obstruction or ileus. Clinical correlation is recommended. 2. Minimal ascites. 3. Three small left renal cysts measuring 9, 5 and 5 mm. 4. Mild scoliosis of the lumbar spine. Alessandro Metz MD Cardiovascular: Regular Lungs: Clear Abdomen: Other (abdomen flat; non tender ) Extremities: No edema A/P Problem List: (1) Ileus ICD Codes: K56.7 - Ileus, unspecified Status: Resolved (2) Gastritis ICD Codes: K29.70 - Gastritis, unspecified, without bleeding Status: Acute (3) Dehydration ICD Codes: E86.0 - Dehydration Status: Acute (4) Leukocytosis ICD Codes: D72.829 - Elevated white blood cell count, unspecified Status: Acute (5) Lactic acidosis ICD Codes: E87.2 - Acidosis Status: Acute (6) Abdominal pain ICD Codes: R10.9 - Unspecified abdominal pain Status: Acute (7) Cocaine abuse ICD Codes: F14.10 - Cocaine abuse, uncomplicated Status: Chronic (8) Depression ICD Codes: F32.9 - Major depressive disorder, single episode, unspecified Status: Chronic Assessment and Plan 46 year old male with abdominal pain; SBO vs ileus -EGD shows gastritis -MRCP results reviewed -HIDA negative for acute process -Regular diet -GS clear for DC; no follow up needed in office Problem Qualifiers (1) Gastritis: Qualified Codes: K29.50 - Unspecified chronic gastritis without bleeding (2) Leukocytosis: Qualified Codes: D72.829 - Elevated white blood cell count, unspecified (3) Abdominal pain: Qualified Codes: R10.13 - Epigastric pain (4) Depression: Qualified Codes: F32.89 - Other specified depressive episodes Niesha Adkins Oct 13, 2017 15:52
[2017-10-13 16:00] VITALS: BP 139/86; PULSE 60; RESP 17; TEMP 98; O2SAT 96
[2017-10-13] MEDS ORDERED: SUCRALFATE 1 GM/10 ML CUP PO SCH (17:00)
[2017-10-13] MEDS ORDERED: SUCRALFATE 1 GM TAB PO SCH (17:00)
[2017-10-13] MEDS ORDERED: PANTOPRAZOLE SOD 40 MG DELAYED RELEASE TAB PO SCH (21:00)
[2017-10-14 13:51] LABS: HCV RNA PCR IU/ML 515000 IU/mL (0-14); HCV RNA PCR LOGIU/ML 5.71 (0-1.18)
[2017-10-15 03:50] LABS: MITOCHONDRIAL ABS LESS THAN 20.0 U (<=20.0)
[2017-10-15 23:53] LABS: HEPATITIS C RNA GENOTYPE 1a (NOT DETECTD)
== END 2017-10-13 16:18 | disposition home health service (06) | DRG 872 ==
LOC: NEPC 05:03 → NEDA 08:53 → NEPGCP 11:15 → OBSVTOIN 10-10 16:43 → N07B 10-12 19:19
PROVIDERS: ADMIT Family Medicine; ATTEND Family Medicine
PROC: 0DB78ZX Excision of Stomach, Pylorus, Via Natural or Artificial Opening Endoscopic, Diagnostic (ICD-10-PCS; 2017-10-12)
PROC: 0DB18ZX Excision of Upper Esophagus, Via Natural or Artificial Opening Endoscopic, Diagnostic (ICD-10-PCS; 2017-10-12)
PROC: 0DB38ZX Excision of Lower Esophagus, Via Natural or Artificial Opening Endoscopic, Diagnostic (ICD-10-PCS; principal; 2017-10-12 14:54)
DX: A41.9 Sepsis, unspecified organism (principal); E87.2 Acidosis; N17.9 Acute kidney failure, unspecified; K56.600 Partial intestinal obstruction, unspecified as to cause; K56.7 Ileus, unspecified; F20.9 Schizophrenia, unspecified; N28.1 Cyst of kidney, acquired; F31.9 Bipolar disorder, unspecified; F17.210 Nicotine dependence, cigarettes, uncomplicated; M19.90 Unspecified osteoarthritis, unspecified site; F41.9 Anxiety disorder, unspecified; R65.20 Severe sepsis without septic shock; E86.0 Dehydration; B19.20 Unspecified viral hepatitis C without hepatic coma; F14.10 Cocaine abuse, uncomplicated; K29.50 Unspecified chronic gastritis without bleeding; K21.0 Gastro-esophageal reflux disease with esophagitis; K52.9 Noninfective gastroenteritis and colitis, unspecified; K44.9 Diaphragmatic hernia without obstruction or gangrene; K29.80 Duodenitis without bleeding; R33.9 Retention of urine, unspecified; Z96.651 Presence of right artificial knee joint; Z87.820 Personal history of traumatic brain injury; Z86.73 Personal history of transient ischemic attack (TIA), and cerebral infarction without residual deficits; Z23 Encounter for immunization
CPT/HCPCS: 74000; 74020; 74177; 74181; 74250; 76377; 78226; 80053; 80074; 80307; 81001; 82103; 82105; 82390; 82728; 83520; 83540; 83550; 83605; 83690; 83735; 84484; 85018; 85025; 85610; 85730; 86038; 86140; 86255; 87522; 87902; 88305; 88312; 90686; J1170; A9537; C9113; J2270; J2405; J2543; J2765; J3370; J7030; J7050; J7120; Q2038; Q9963; Q9967

== ENCOUNTER → 2017-11-28 | Outpatient (CLI) | payer OTHER ==
[~2017-11-28] MED LIST changes: +CARA1TAB6 PO; +CLON.5 PO; +PANT40TA3 PO; +THIA100 PO; -TOBR.3%O LEFT EYE; +ZOFR4TAB PO
--- NOTE | 2017-11-29 10:19 | EKG ---
Date Performed: 11/28/2017 Time Performed: 15:01:01 PTAGE: 46 years EKG: Sinus rhythm POSSIBLE RIGHT VENTRICULAR CONDUCTION DELAY BORDERLINE ECG NO PREVIOUS TRACING DOCTOR: Bryant Hernández Interpretating Date/Time 11/29/2017 10:18:23
== END ==
LOC: HCAV 14:50
DX: F20.0 Paranoid schizophrenia (principal); F43.12 Post-traumatic stress disorder, chronic; R94.31 Abnormal electrocardiogram [ECG] [EKG]
CPT/HCPCS: 93005

== ENCOUNTER 2018-04-16 13:29 | Emergency (ER) | payer OTHER ==
[~2018-04-16] VITALS: Ht 175.3 cm; Wt 60.0 kg
[2018-04-16 13:49] VITALS: BP 127/64; PULSE 89; RESP 16; TEMP 99; O2SAT 97
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
[2018-04-16] MEDS ORDERED: PROZ20CA11 PO (14:38)
[2018-04-16 15:52] LABS: AUTOMATED NEUTROPHIL # 6.7 TH/MM3 (1.8-7.7); BASOPHIL % 0.5 % (0.0-2.0); EOSINOPHIL # 0.2 TH/MM3 (0-0.4); EOSINOPHIL % 2.3 % (0.0-4.0); HEMATOCRIT 45.1 % (39.0-51.0); HEMOGLOBIN 15.5 GM/DL (13.0-17.0); LYMPH % 17.3 % (9.0-44.0); LYMPHOCYTE # 1.6 TH/MM3 (1.0-4.8); MEAN CELL VOLUME 101.1 FL (80.0-100.0); MEAN CORPUSCULAR HEMOGLOBIN 34.7 PG (27.0-34.0); MEAN CORPUSCULAR HGB CONC 34.3 % (32.0-36.0); MEAN PLATELET VOLUME 10.4 FL (7.0-11.0); MONO % 9.4 % (0.0-8.0); MONOCYTE # 0.9 TH/MM3 (0-0.9); NEUT % 70.5 % (16.0-70.0); PLATELET COUNT 159 TH/MM3 (150-450); RED BLOOD COUNT 4.46 MIL/MM3 (4.50-5.90); RED CELL DISTRIBUTION WIDTH 13.1 % (11.6-17.2); WHITE BLOOD COUNT 9.5 TH/MM3 (4.0-11.0)
--- NOTE | 2018-04-16 15:59 | RADRPT ---
EXAM DATE: 04/16/2018 3:52 PM EDT AGE/SEX: 47 years / Male INDICATIONS: Left leg edema. CLINICAL DATA: This is the patient's initial encounter. Patient reports that signs and symptoms have been present for 3 days and indicates a pain score of 4/10. MEDICAL/SURGICAL HISTORY: Arthritis. Traumatic brain injury. TIA. Asthma. Schizophrenia. Bipola r disorder. Depression. Anxiety. Substance use. . Right knee, femur and hip surgery. COMPARISON: No prior [place] exams available for comparison. No external comparison. TECHNIQUE: Venous ultrasound of both lower extremities was performed from the inguinal ligament to t he proximal calf. Real-time, color Doppler and spectral tracing, compression and augmentation techni ques were used. FINDINGS: There is normal compressibility of the deep venous system from the inguinal region to the proximal ca lf. No echogenic clot is seen in the lumen of the common femoral, femoral, popliteal, and peroneal v eins. The posterior tibial vein is incompletely compressible at the midcalf level. CONCLUSION: 1. Incompletely occlusive DVT in the left calf posterior tibial vein. 2. No evidence of proximal left leg DVT Electronically signed by: Beau Lechuga MD 04/16/2018 3:58 PM EDT
[2018-04-16 16:10] LABS: PROTHROMBIN TIME - PATIENT 9.9 SEC (9.8-11.6)
[2018-04-16] MEDS ORDERED: APIXABAN 5 MG TABLET PO ONE (16:30)
[2018-04-16] MEDS ORDERED: APIX5TAB PO ×2 (16:38→16:40)
[2018-04-16 17:03] LABS: ALBUMIN 3.3 GM/DL (3.4-5.0); ALT (GPT) 119 U/L (12-78); AST (GOT) 287 U/L (15-37); BICARBONATE 31.8 MEQ/L (21.0-32.0); BLOOD UREA NITROGEN 6 MG/DL (7-18); CALCIUM 8.7 MG/DL (8.5-10.1); CHLORIDE 101 MEQ/L (98-107); CREATININE 1.09 MG/DL (0.60-1.30); GLOMERULAR FILTRATION RATE 72 ML/MIN (>89); GLUCOSE,RANDOM 108 MG/DL (74-106); SODIUM (NA) 139 MEQ/L (136-145)
[2018-04-16 17:05] LABS: ALKALINE PHOSPHATASE 57 U/L (45-117); TOTAL BILIRUBIN ADULT 0.6 MG/DL (0.2-1.0); TOTAL PROTEIN 7.6 GM/DL (6.4-8.2)
== END 2018-04-16 17:01 | disposition home or self-care (01) ==
LOC: NEPK 13:29
DX: I82.442 Acute embolism and thrombosis of left tibial vein (principal); F20.9 Schizophrenia, unspecified; F31.9 Bipolar disorder, unspecified; F17.200 Nicotine dependence, unspecified, uncomplicated
CPT/HCPCS: 80053; 85025; 85610; 85730; 93971